=== PATIENT | female | born 1960 | race Caucasian/White ===

== ENCOUNTER → 2016-06-23 | Day surgery (SDC) | payer SELFPAY ==
[~2016-06-23] VITALS: Ht 157.5 cm; Wt 68.7 kg
[~2016-06-23] MED LIST: *HYDROmorphone PF 1 MG VIAL PERIprocedural Use ONLY ONE; *morphine SULFATE 8 MG/ML PERIprocedure ONLY ONE; ACETAMINOPHEN 1000 MG/100 ML VIAL IV ONE; BUPIVACAINE/EPINEPHRINE 0.25% 50 ML VIAL ONE; BUPIVACAINE/EPINEPHRINE 0.25% PF 30 ML VIAL ONE; BUPIVACAINE/EPINEPHRINE 0.5% 50 ML VIAL ONE; CHLORHEXIDINE GLUCONATE 2 % 1 PACK (2 CLOTHS) TOPICAL PRN; DO NOT ADM ANY ANTICOAGULANT DRUGS PRN; FAMOTIDINE 20 MG/2 ML VIAL ONE; INSULIN HUMAN REGULAR 1,000 UNITS/10 ML VIAL SQ PRN; LACTATED RINGER'S 1000 ML INJ 1,000 ML IV ONE; LACTATED RINGER'S 1000 ML IV PRN; METOPROLOL TARTRATE 25 MG TAB PO PRN; MIDAZOLAM HCL 2 MG/2 ML VIAL ONE; NEOSTIGMINE 3 MG/3 ML SYR IV ONE; NORC5TAB PO; ONDANSETRON HCL 4 MG/2 ML VIAL IV PUSH ONE; ONDANSETRON HCL 4 MG/2 ML VIAL ONE; POVIDONE IODINE 5% (ANTISEPSIS KIT) 4 APPLICATIONS EACH NARE PRN; PROPOFOL 200 MG/20 ML AMP IV ONE; SODIUM CHLORID 0.9% 500 ML IV PRN; SUGAMMADEX SODIUM 200 MG/2 ML VIAL IV PUSH ONE; ceFAZolin 1,000 MG/NS 100 ML IV SCH; fentaNYL CITRATE 250 MCG/5 ML AMP ONE
[2016-06-23 06:37] VITALS: BP 125/60; PULSE 84; RESP 18; TEMP 97.9; O2SAT 97
--- NOTE | 2016-06-23 07:31 | EKG ---
Date Performed: 06/23/2016 Time Performed: 06:42:51 PTAGE: 55 years EKG: Sinus rhythm NORMAL ECG NO PREVIOUS TRACING DOCTOR: Epifanio Bustos Interpretating Date/Time 06/23/2016 07:31:16
--- NOTE | 2016-06-23 10:31 | HHI.PR ---
cc: Hiren Ulrich MD Immediate Post Op Note Procedure Date: June 23, 2016 Pre Op Diagnosis: (1) Chronic appendicitis (2) Abdominal pain, right lower quadrant (3) Abdominal pain (4) Nausea (5) Abnormal CT scan Post Op Diagnosis: (1) Chronic appendicitis (2) Abdominal pain, right lower quadrant (3) Abdominal pain (4) Nausea (5) Abnormal CT scan (6) Status post laparoscopic appendectomy (7) Left ovarian cyst Surgeon: Hiren Ulrich Rn Imcu(s): Refer to or record Procedure: Diagnostic laparoscopy next laparoscopic appendectomy Findings: Chronic inflamed appendix Left ovarian cyst benign Complications: None Specimen(s) removed: Appendix Estimated blood loss: Minimal Anesthesia: General Drains: None IVF Patient to: PACU Patient Condition: Good Implant/Devices: SEE IMPLANT LOG (if applicable) Date/Time of Procedure: SEE SURGICAL CARE RECORD Hiren Ulrich MD June 23, 2016 10:31
[2016-06-23 12:28] VITALS: BP 138/65; PULSE 90; RESP 16; TEMP 98; O2SAT 98
--- NOTE | 2016-06-24 18:59 | MP ---
cc: MARY JANE ULRICH BEATRICE S. M.D. Corrected Copy: 07/03/16 DATE OF SURGERY 06/23/16 PREOPERATIVE DIAGNOSIS Chronic appendicitis. POSTOPERATIVE DIAGNOSIS 1. Chronic appendicitis. 2. Left ovarian cyst. PROCEDURE 1. Diagnostic laparoscopy 2. Lysis of adhesions 3. Laparoscopic appendectomy. ANESTHESIA General SURGEON Dr. Jian Ulrich. INDICATION This is a pleasant 55-year old female who has had a 3-month history of three episodes of right lower quadrant pain, chills, fevers. She had gone three times to the emergency room. She was seen on an outpatient basis, had a CT scan which showed unusual appearing appendix. She was sent to the office. Plans were made for above. PROCEDURE IN DETAIL The patient was taken to the operating room, placed in supine position after anesthesia. Her abdomen was prepped with Betadine. Time-out was done. She is given preoperative antibiotics. We make an incision just above her umbilicus. Veress needle was inserted, saline load test was performed. The abdomen is insufflated to 15 mmHg. Ten mm trocar was introduced. Two other working ports were placed and the 5 mm in the midline. Camera is introduced. The appendix is obviously inflamed. She had some adhesions along the anterior abdominal wall of the distal ileum and cecum. Once this is freed up with blunt dissection and hydrodissection. We are able to visualize the appendix which is obviously chronically inflamed. The mesentery is taken down with the harmonic scalpel down to the base of the appendix. Two endo-ties were then placed around the base of the appendix. The appendix then amputated, placed in EndoCatch and passed off the field. The terminal ileum looks normal except for the inflammatory response from the appendix on an epiploica. The pelvis was inspected. The right ovary appears normal. Left ovary has a small cyst. Uterus looks normal. Liver is smooth. The peritoneal surfaces smooth. The gallbladder looks completely normal. The omentum is then draped over the appendiceal stump after copious irrigation was done and performed. This irrigant was removed. The CO2 is removed. The fascial layer at the umbilicus closed with a 0 Vicryl and skin at all three sites closed with 4-0 Vicryl. Steri-Strips applied. Sterile bandage applied. The patient tolerated procedure well, had no immediate postop complications. MD TOBY Ritchie/ /10:26 AM /6:50 PM [facility]
== END | disposition home or self-care (01) ==
LOC: HSDC 05:27
PROVIDERS: ATTEND Surgery
DX: K36 Other appendicitis (principal); N83.202 Unspecified ovarian cyst, left side; R11.0 Nausea; R10.31 Right lower quadrant pain; Z01.810 Encounter for preprocedural cardiovascular examination
CPT/HCPCS: 00840; 44970; 88304; 93005; J0131; J0690; J1170; J2250; J2270; J2405; J2710; J3010; J7120

== ENCOUNTER 2017-01-03 19:00 | Emergency (ER) | payer SELFPAY ==
[~2017-01-03] VITALS: Ht 157.5 cm; Wt 68.0 kg
[~2017-01-03 19:00] MED LIST changes: -*HYDROmorphone PF 1 MG VIAL PERIprocedural Use ONLY ONE; -*morphine SULFATE 8 MG/ML PERIprocedure ONLY ONE; -ACETAMINOPHEN 1000 MG/100 ML VIAL IV ONE; -BUPIVACAINE/EPINEPHRINE 0.25% 50 ML VIAL ONE; -BUPIVACAINE/EPINEPHRINE 0.25% PF 30 ML VIAL ONE; -BUPIVACAINE/EPINEPHRINE 0.5% 50 ML VIAL ONE; -CHLORHEXIDINE GLUCONATE 2 % 1 PACK (2 CLOTHS) TOPICAL PRN; -DO NOT ADM ANY ANTICOAGULANT DRUGS PRN; -FAMOTIDINE 20 MG/2 ML VIAL ONE; -INSULIN HUMAN REGULAR 1,000 UNITS/10 ML VIAL SQ PRN; -LACTATED RINGER'S 1000 ML INJ 1,000 ML IV ONE; -LACTATED RINGER'S 1000 ML IV PRN; -METOPROLOL TARTRATE 25 MG TAB PO PRN; -MIDAZOLAM HCL 2 MG/2 ML VIAL ONE; -NEOSTIGMINE 3 MG/3 ML SYR IV ONE; -ONDANSETRON HCL 4 MG/2 ML VIAL IV PUSH ONE; -ONDANSETRON HCL 4 MG/2 ML VIAL ONE; -POVIDONE IODINE 5% (ANTISEPSIS KIT) 4 APPLICATIONS EACH NARE PRN; -PROPOFOL 200 MG/20 ML AMP IV ONE; -SODIUM CHLORID 0.9% 500 ML IV PRN; -SUGAMMADEX SODIUM 200 MG/2 ML VIAL IV PUSH ONE; -ceFAZolin 1,000 MG/NS 100 ML IV SCH; -fentaNYL CITRATE 250 MCG/5 ML AMP ONE
[2017-01-03 19:01] VITALS: BP 126/60; PULSE 139; RESP 22; TEMP 103.2; O2SAT 98
[2017-01-03] MEDS ORDERED: SODIUM CHLOR 0.9% 1000 ML INJ 1,000 ML IV ONE ×2 (19:22)
[2017-01-03] MEDS ORDERED: SODIUM CHLOR 0.9% 1000 ML INJ 100 ML IV ONE (19:22)
--- NOTE | 2017-01-03 19:28 | PD ---
HPI Chief Complaint: Fever Time Seen by Provider: 19:13 Travel History International Travel<30 days: No Contact w/Intl Traveler<30days: No Traveled to known affect area: No History of Present Illness HPI 56 YO F presents to the ED for evaluation of 3 day history of fever. The patient has been treating at home with Tylenol, last dose ~645pm tonight. She endorses recent history of lower abdominal pain. Described as intermittent, resolved on presentation. She denies headaches, dizziness, sinus congestion, neck pain, cough, CP, SOB, nausea, vomiting, dysuria, back pain, weakness of the extremities. She endorses similar history of fever in the past but states there was never any source identified. She denies risk of . Patient is somewhat guarded in providing her history. She is followed by Dr. Lutz. [facility] Past Medical History Cancer: No Cardiovascular Problems: No Diabetes: No Endocrine: No Genitourinary: No Hepatitis: No Immune Disorder: No Musculoskeletal: Yes (LT SHOULDER TENDONITIS AND BURSITIS, LT KNEE PAIN) Neurologic: Yes (HX MIGRAINES, LOW BACK PAIN) Respiratory: No Thyroid Disease: No Past Surgical History AICD: No Joint Replacement: No Oral Surgery: Yes (TONSILLECTOMY) Pacemaker: No Social History Tobacco Use: No Substance Use: No Allergies-Medications (Allergen,Severity, Reaction): Coded Allergies: shellfish derived (Unverified Allergy, Severe, TINGLING AND ITCHING IN MOUTH AND THROAT, 01/04/17) Reported Meds & Prescriptions Reported Meds & Active Scripts Active Macrobid (Nitrofurantoin Monoh/Nitrofur Macro) 100 Mg Cap 100 Mg PO BID 7 Days [place] (Hydrocodone-Acetaminophen) 5-325 mg Tab 1 Tab PO Q6H PRN Review of Systems Except as stated in HPI: all other systems reviewed are Neg Physical Exam Narrative GENERAL: Well-nourished, well-developed female in no acute distress. SKIN: Focused skin assessment warm/dry. HEAD: Normocephalic. EYES: No scleral icterus. No injection or drainage. NECK: Supple, trachea midline. No JVD or lymphadenopathy. No nuchal rigidity. No limitation to ROM of the neck. CARDIOVASCULAR: Regular rate and rhythm without murmurs, gallops, or rubs. RESPIRATORY: Breath sounds clear and equal bilaterally. No accessory muscle use. GASTROINTESTINAL: Abdomen soft, non-tender, nondistended. MUSCULOSKELETAL: No cyanosis, or edema. BACK: Nontender without obvious deformity. No CVA tenderness. Data Data Last Documented VS Orders Orders Sepsis Workup Initiated (01/03/17 ) Complete Blood Count With Diff (01/03/17 19:22) Comprehensive Metabolic Panel (01/03/17 19:22) Prothrombin Time / Inr (Pt) (01/03/17:) Act Partial Throm Time (Ptt) (01/03/17 19:) Lactic Acid Sepsis Protocol (01/03/17 19:22) Lipase (01/03/17:22) Urinalysis - C+S If Indicated (01/03/17:) Influenzae A/B Antigen (01/03/17:) Blood Culture (01/03/17 19:22) Chest, Single Ap (01/03/17 19:22) Blood Glucose (01/03/17:) Ecg Monitoring (01/03/17:) Iv Access Insert/Monitor (01/03/17 19:22) Oximetry (01/03/17:22) Sodium Chlor 0.9% 1000 Ml Inj (Ns 1000 M (01/03/17 19:22) Sodium Chlor 0.9% 1000 Ml Inj (Ns 1000 M (01/03/17 19:22) Sodium Chlor 0.9% 1000 Ml Inj (Ns 1000 M (01/03/17 19:22) Urine Culture (01/03/17 21:49) Ceftriaxone Inj (Rocephin Inj) (01/03/17 23:00) Ed Discharge Order (01/03/17 23:02) Labs Laboratory Tests Test 01/03/17 20:03 01/03/17 20:41 01/03/17 21:49 White Blood Count 9.9 TH/MM3 Red Blood Count 4.31 MIL/MM3 Hemoglobin 13.8 GM/DL Hematocrit 39.1 % Mean Corpuscular Volume 90.9 FL Mean Corpuscular Hemoglobin 32.0 PG Mean Corpuscular Hemoglobin Concent 35.2 % Red Cell Distribution Width 13.3 % Platelet Count 217 TH/MM3 Mean Platelet Volume 7.9 FL Neutrophils (%) (Auto) 87.1 % Lymphocytes (%) (Auto) 10.1 % Monocytes (%) (Auto) 2.2 % Eosinophils (%) (Auto) 0.0 % Basophils (%) (Auto) 0.6 % Neutrophils # (Auto) 8.6 TH/MM3 Lymphocytes # (Auto) 1.0 TH/MM3 Monocytes # (Auto) 0.2 TH/MM3 Eosinophils # (Auto) 0.0 TH/MM3 Basophils # (Auto) 0.1 TH/MM3 CBC Comment DIFF FINAL Differential Comment Prothrombin Time 10.7 SEC Prothromb Time International Ratio 1.0 RATIO Activated Partial Thromboplast Time 28.4 SEC Blood Urea Nitrogen 11 MG/DL Creatinine 1.02 MG/DL Random Glucose 147 MG/DL Total Protein 7.4 GM/DL Albumin 3.4 GM/DL Calcium Level 8.7 MG/DL Alkaline Phosphatase 81 U/L Aspartate Amino Transf (AST/SGOT) 32 U/L Alanine Aminotransferase (ALT/SGPT) 43 U/L Total Bilirubin 1.4 MG/DL Sodium Level 136 MEQ/L Potassium Level 3.8 MEQ/L Chloride Level 103 MEQ/L Carbon Dioxide Level 23.9 MEQ/L Anion Gap 9 MEQ/L Estimat Glomerular Filtration Rate 56 ML/MIN Lipase 133 U/L Lactic Acid Level 1.8 mmol/L Urine Color YELLOW Urine Turbidity HAZY Urine pH 7.0 Urine Specific [place] 1.010 Urine Protein TRACE mg/dL Urine Glucose (UA) NEG mg/dL Urine Ketones 40 mg/dL Urine Occult Blood MOD Urine Nitrite NEG Urine Bilirubin NEG Urine Urobilinogen LESS THAN 2.0 MG/DL Urine Leukocyte Esterase LARGE Urine RBC 20 /hpf Urine WBC 28 /hpf Urine Squamous Epithelial Cells 2 /hpf Urine Transitional Epithelial Cells 1 /hpf Urine Amorphous Sediment RARE Urine Bacteria RARE /hpf Urine Mucus FEW /lpf Microscopic Urinalysis Comment CATH-CULTURE IND MDM Medical Decision Making Medical Screen Exam Complete: Yes Emergency Medical Condition: Yes Differential Diagnosis UTI versus PNA versus influenza versus other Narrative Course 56 YO F presents to the ED for evaluation of 3 day history of fever. The patient has been treating at home with Tylenol, last dose ~645pm tonight. She endorses recent history of lower abdominal pain. Described as intermittent, resolved on presentation. She denies headaches, dizziness, sinus congestion, neck pain, cough, CP, SOB, nausea, vomiting, dysuria, back pain, weakness of the extremities. She denies risk of . Patient is somewhat guarded in providing her history. She is followed by Dr. Lutz. Temperature 103.2, heart rate 139 on presentation. Patient states that she treated at home with 2 Tylenol just before arrival. Physical exam reveals a nontoxic-appearing female in no acute distress. Lungs clear to auscultation bilaterally. Abdomen soft and nontender. No CVA tenderness noted. Blood cultures were obtained. IV fluid resuscitation was initiated under the sepsis protocol. CBC: WBC 9.9. Hemoglobin 13.8. INR: 1.0. CMP: BUN 11, creatinine 1.02. Bilirubin 1.4. Lipase 133. Lactic acid 1.8. Influenza swab negative. UA: Hazy, moderate occult blood, large leukocyte esterase, 28 WBCs, 20 RBCs. Rare bacteria. Culture pending. Patient was administered 1 g Rocephin IV. I discussed the results of the workup with the patient and her . Patient does not want to be admitted at this time. Temp 99.7, heart rate 68 on recheck. She is prescribed Macrobid 100 mg twice a day 7 days. She is instructed to return to the ED should symptoms worsen, otherwise follow up with her primary care provider. Patient is stable and discharged home. Diagnosis Primary Impression: Acute hemorrhagic cystitis Referrals: Primary Care Physician Patient Instructions: General Instructions, Urinary Tract Infection in Women ( ED) Additional Instructions: Rest, hydrate. Take antibiotics as prescribed. Follow-up with the primary care provider this week. Return to the ED for worsening symptoms or any urgent or emergent medical condition. Med/Other Pt SpecificInfo: Prescription(s) given Scripts Nitrofurantoin Monohydrate Macrocrystals (Macrobid) 100 Mg Cap 100 MG PO BID for Infection for 7 Days, #14 CAP 0 Refills Prov: Sabrina Sawyer MD 01/03/17 Disposition: DISCHARGE HOME Condition: Stable Lubna Murphy Jan 03, 2017 19:28
--- NOTE | 2017-01-03 19:53 | RADRPT ---
EXAM DATE/TIME: 01/03/2017 19:29 [place] COMPARISON: No previous studies available for comparison. INDICATIONS : Fever. MEDICAL HISTORY : None. SURGICAL HISTORY : None. ENCOUNTER: Initial ACUITY: 3 days PAIN SCORE: 0/10 LOCATION: chest FINDINGS: A single view of the chest demonstrates the lungs to be symmetrically aerated without evidence of mas s, infiltrate or effusion. The cardiomediastinal contours are unremarkable. Osseous structures are intact. CONCLUSION: The lungs are clear. Cipriano Turner MD on January 03, 2017 at 19:52 Board Certified Radiologist. This report was verified electronically.
[2017-01-03 20:26] LABS: AUTOMATED NEUTROPHIL # 8.6 TH/MM3 (1.8-7.7); BASOPHIL # 0.1 TH/MM3 (0-0.2); BASOPHIL % 0.6 % (0.0-2.0); HEMATOCRIT 39.1 % (35.0-46.0); HEMO FLAGS DIFF FINAL; LYMPH % 10.1 % (9.0-44.0); MEAN CELL VOLUME 90.9 FL (80.0-100.0); MEAN CORPUSCULAR HGB CONC 35.2 % (32.0-36.0); MONO % 2.2 % (0.0-8.0); NEUT % 87.1 % (16.0-70.0); PLATELET COUNT 217 TH/MM3 (150-450); RED BLOOD COUNT 4.31 MIL/MM3 (4.00-5.30); RED CELL DISTRIBUTION WIDTH 13.3 % (11.6-17.2); WHITE BLOOD COUNT 9.9 TH/MM3 (4.0-11.0)
[2017-01-03 20:28] LABS: APTT (PATIENT) 28.4 SEC (24.3-30.1); PROTHROMBIN TIME - PATIENT 10.7 SEC (9.8-11.6)
[2017-01-03 20:32] LABS: ANION GAP 9 MEQ/L (5-15); AST (GOT) 32 U/L (15-37); BICARBONATE 23.9 MEQ/L (21.0-32.0); BLOOD UREA NITROGEN 11 MG/DL (7-18); CHLORIDE 103 MEQ/L (98-107); GLOMERULAR FILTRATION RATE 56 ML/MIN (>89); POTASSIUM 3.8 MEQ/L (3.5-5.1); SODIUM (NA) 136 MEQ/L (136-145)
[2017-01-03 20:33] LABS: ALT (GPT) 43 U/L (10-53)
[2017-01-03 20:35] LABS: ALKALINE PHOSPHATASE 81 U/L (45-117); TOTAL BILIRUBIN ADULT 1.4 MG/DL (0.2-1.0)
[2017-01-03 21:23] VITALS: BP 101/52; PULSE 108; RESP 18; TEMP 99.7; O2SAT 98
[2017-01-03 22:03] LABS: BACTERIA, URINE RARE /hpf; BLOOD, URINE MOD (NEG); COMMENT (UR) CATH-CULTURE IND; CULTURE IF INDICATED CATH CULTURE IND; GLUCOSE,URINE NEG (NEG); KETONE, URINE 40 mg/dL (NEG); MUCUS URINE FEW /lpf (OCC); NITRITE,URINE NEG (NEG); SQUAMOUS EPITHELIAL CELL URINE 2 /hpf (0-5); TRANSITIONAL EPI CELLS, URINE 1 /hpf; URINE COLOR YELLOW (YELLW/STRAW)
[2017-01-03] MEDS ORDERED: MACR100C2 PO (22:50)
[2017-01-03] MEDS ORDERED: cefTRIAXone INJ 1,000 MG in SODIUM CHLORIDE 0.9% INJ 100 ML IV ONE (23:00)
[2017-01-03 23:15] VITALS: BP 110/60; PULSE 68; RESP 16; O2SAT 100
[2017-01-03 23:59] VITALS: BP 110/60
== END 2017-01-04 00:02 | disposition home or self-care (01) ==
LOC: NEPC 19:00
DX: N30.01 Acute cystitis with hematuria (principal); R78.81 Bacteremia; B96.1 Klebsiella pneumoniae [K. pneumoniae] as the cause of diseases classified elsewhere
CPT/HCPCS: 71010; 80053; 81001; 83605; 83690; 85025; 85610; 85730; 87040; 87077; 87086; 87149; 87186; 87205; 87804; 96361; 96365; 99284; J0696; J7030

== ENCOUNTER 2017-01-04 21:55 | Inpatient (IN) | payer SELFPAY ==
[~2017-01-04] VITALS: Ht 157.5 cm; Wt 68.0 kg
[~2017-01-04 21:55] MED LIST changes: +MACR100C2 PO
[2017-01-04 21:57] VITALS: BP 145/65; PULSE 131; RESP 16; TEMP 105.1; O2SAT 97
[2017-01-04] MEDS ORDERED: SODIUM CHLOR 0.9% 1000 ML INJ 1,000 ML IV ONE ×2 (22:27)
[2017-01-04] MEDS ORDERED: SODIUM CHLOR 0.9% 1000 ML INJ 100 ML IV ONE (22:27)
[2017-01-04] MEDS ORDERED: IBUPROFEN 800 MG TAB PO ONE (22:30)
[2017-01-04] MEDS ORDERED: PIPERACIL-TAZO 4.5 GM PREMIX 100 ML IV STA (22:38)
[2017-01-04] MEDS ORDERED: VANCOMYCIN INJ 1,000 MG in SODIUM CHLOR 0.9% 250 ML INJ 250 ML IV STA (22:38)
[2017-01-04 22:45] VITALS: BP 118/56; PULSE 126; RESP 22; TEMP 103; O2SAT 99
--- NOTE | 2017-01-04 22:51 | PD ---
HPI Chief Complaint: Fever Time Seen by Provider: 22:35 Travel History International Travel<30 days: No Contact w/Intl Traveler<30days: No Traveled to known affect area: No History of Present Illness HPI Patient is a 56-year-old female presenting to the emergency department for evaluation of urinary symptoms, fever, body aches. Patient states this started on Sunday, she presented to the emergency department last night and was diagnosed with a urinary tract infection. She states they were unable to get the antibiotics filled due to it being a holiday. She reports fevers, chills, shaking all day, she is been taking Tylenol which relieves the temperature but it returns quickly. She reports a decreased appetite, she has been tolerating oral fluids and has had at least 6 bottles of water today. She reports a dull headache as well. PFSH Past Medical History Cancer: No Cardiovascular Problems: No Diabetes: No Endocrine: No Genitourinary: No Hepatitis: No Immune Disorder: No Musculoskeletal: Yes (LT SHOULDER TENDONITIS AND BURSITIS, LT KNEE PAIN) Neurologic: Yes (HX MIGRAINES, LOW BACK PAIN) Respiratory: No Thyroid Disease: No Past Surgical History AICD: No Joint Replacement: No Oral Surgery: Yes (TONSILLECTOMY) Pacemaker: No Social History Tobacco Use: No Substance Use: No Allergies-Medications (Allergen,Severity, Reaction): Coded Allergies: shellfish derived (Unverified Allergy, Severe, TINGLING AND ITCHING IN MOUTH AND THROAT, 01/04/17) Reported Meds & Prescriptions Reported Meds & Active Scripts Active Macrobid (Nitrofurantoin Monoh/Nitrofur Macro) 100 Mg Cap 100 Mg PO BID 7 Days [place] (Hydrocodone-Acetaminophen) 5-325 mg Tab 1 Tab PO Q6H PRN Review of Systems Except as stated in HPI: all other systems reviewed are Neg General / Constitutional: Positive: Fever, Chills HENT: Positive: Headaches, Neck Stiffness Cardiovascular: No: Chest Pain or Discomfort Respiratory: No: Shortness of Breath Gastrointestinal: No: Nausea, Vomiting Genitourinary: Positive: Dysuria, Pelvic Pain Musculoskeletal: Positive: Myalgias Neurologic: Positive: Weakness, No: Focal Abnormalities, Change in Mentation, Slurred Speech, Sensory Disturbance Physical Exam Narrative GENERAL: Well-developed, well-nourished, alert female. Appears uncomfortable, in no acute distress. SKIN: Warm and dry. HEAD: Atraumatic. Normocephalic. EYES: Pupils equal and round. No scleral icterus. No injection or drainage. ENT: No nasal bleeding or discharge. Mucous membranes pink and moist. NECK: Trachea midline. No JVD. CARDIOVASCULAR: Tachycardic RESPIRATORY: No accessory muscle use. Clear to auscultation. Breath sounds equal bilaterally. GASTROINTESTINAL: Abdomen soft, only tender to palpation in suprapubic region, nondistended. Hepatic and splenic margins not palpable. Positive bowel sounds, no rebound, no guarding. MUSCULOSKELETAL: Extremities without clubbing, cyanosis, or edema. No obvious deformities. NEUROLOGICAL: Awake and alert. No obvious cranial nerve deficits. Motor grossly within normal limits. Five out of 5 muscle strength in the arms and legs. Normal speech. PSYCHIATRIC: Appropriate mood and affect; insight and judgment normal. Data Data Last Documented VS Vital Signs Date Time Temp Pulse Resp B/P (MAP) Pulse Ox O2 Delivery O2 Flow Rate FiO2 01/04/17 22:57 22 99 Nasal Cannula 2.00 01/04/17 22:45 103.0 126 Orders Orders Sepsis Workup Initiated (01/04/17 ) Electrocardiogram (01/04/17 22:27) Complete Blood Count With Diff (01/04/17 22:27) Comprehensive Metabolic Panel (01/04/17 22:27) Lactic Acid Sepsis Protocol (01/04/17 22:27) Magnesium (Mg) (01/04/17 22:27) Urinalysis - C+S If Indicated (01/04/17 22:27) Blood Culture (01/04/17 22:27) Blood Glucose (01/04/17 22:27) Ecg Monitoring (01/04/17 22:27) Iv Access Insert/Monitor (01/04/17 22:27) Oximetry (01/04/17 22:27) Oxygen Administration (01/04/17 22:27) Ibuprofen (Motrin) (01/04/17 22:30) Sodium Chlor 0.9% 1000 Ml Inj (Ns 1000 M (01/04/17 22:27) Sodium Chlor 0.9% 1000 Ml Inj (Ns 1000 M (01/04/17 22:27) Sodium Chlor 0.9% 1000 Ml Inj (Ns 1000 M (01/04/17 22:27) Piperacil-Tazo 4.5 Gm Premix (Zosyn 4.5 (01/04/17 22:38) Vancomycin Inj (Vancomycin Inj) (01/04/17 22:38) Urine Culture (01/04/17 22:50) Influenzae A/B Antigen (01/04/17 23:47) Admit Order (Ed Use Only) (01/05/17 ) Brass Pourer / Telemetry NELA.Q8H (01/05/17 01:05) Diet Heart Healthy (01/05/17 Breakfast) Activity Oob With Assistance (01/05/17 01:05) Notify Dr: Other (01/05/17 01:05) Labs Laboratory Tests Test 01/04/17 22:50 01/04/17 22:52 Urine Color LIGHT-YELLOW Urine Turbidity CLEAR Urine pH 5.5 Urine Specific [place] 1.007 Urine Protein 30 mg/dL Urine Glucose (UA) NEG mg/dL Urine Ketones 10 mg/dL Urine Occult Blood MOD Urine Nitrite NEG Urine Bilirubin NEG Urine Urobilinogen LESS THAN 2.0 MG/DL Urine Leukocyte Esterase NEG Urine RBC 8 /hpf Urine WBC 4 /hpf Urine Squamous Epithelial Cells <1 /hpf Urine Transitional Epithelial Cells <1 /hpf Urine Amorphous Sediment OCC Urine Bacteria RARE /hpf Urine Mucus FEW /lpf Microscopic Urinalysis Comment CATH-CULTURE IND White Blood Count 8.9 TH/MM3 Red Blood Count 3.69 MIL/MM3 Hemoglobin 11.3 GM/DL Hematocrit 33.2 % Mean Corpuscular Volume 89.9 FL Mean Corpuscular Hemoglobin 30.7 PG Mean Corpuscular Hemoglobin Concent 34.2 % Red Cell Distribution Width 13.5 % Platelet Count 158 TH/MM3 Mean Platelet Volume 7.9 FL Neutrophils (%) (Auto) 90.9 % Lymphocytes (%) (Auto) 3.5 % Monocytes (%) (Auto) 3.3 % Eosinophils (%) (Auto) 0.2 % Basophils (%) (Auto) 2.1 % Neutrophils # (Auto) 8.1 TH/MM3 Lymphocytes # (Auto) 0.3 TH/MM3 Monocytes # (Auto) 0.3 TH/MM3 Eosinophils # (Auto) 0.0 TH/MM3 Basophils # (Auto) 0.2 TH/MM3 CBC Comment AUTO DIFF Differential Total Cells Counted 100 Neutrophils % (Manual) 85 % Band Neutrophils % 10 % Lymphocytes % 3 % Monocytes % 2 % Neutrophils # (Manual) 8.5 TH/MM3 Differential Comment FINAL DIFF MANUAL Atypical Lymphocytes % Toxic Vacuolation PRESENT Platelet Estimate NORMAL Platelet Morphology Comment NORMAL Red Cell Morphology Comment NORMAL Blood Urea Nitrogen 10 MG/DL Creatinine 0.89 MG/DL Random Glucose 127 MG/DL Total Protein 6.3 GM/DL Albumin 2.7 GM/DL Calcium Level 8.1 MG/DL Magnesium Level 1.2 MG/DL Alkaline Phosphatase 95 U/L Aspartate Amino Transf (AST/SGOT) 31 U/L Alanine Aminotransferase (ALT/SGPT) 54 U/L Total Bilirubin 1.1 MG/DL Sodium Level 137 MEQ/L Potassium Level 3.4 MEQ/L Chloride Level 108 MEQ/L Carbon Dioxide Level 20.8 MEQ/L Anion Gap 8 MEQ/L Estimat Glomerular Filtration Rate 66 ML/MIN Lactic Acid Level 1.7 mmol/L [facility] Medical Decision Making Medical Screen Exam Complete: Yes Emergency Medical Condition: Yes Medical Record Reviewed: Yes Interpretation(s) Vital Signs Date Time Temp Pulse Resp B/P (MAP) Pulse Ox O2 Delivery O2 Flow Rate FiO2 01/04/17 21:57 105.1 131 16 145/65 (91) 97 Room Air Differential Diagnosis Urosepsis versus metabolic abnormality versus cardiac arrhythmia versus other Narrative Course Patient is a 56-year-old female presented to emergency department for evaluation of fever, urinary symptoms. Patient is tachycardic and hyperthermic on arrival. Sepsis workup initiated. Upon review of medical records, patient' s blood cultures that were drawn yesterday have preliminary results of gram negative rods. Empiric antibiotics ordered, Zosyn and vancomycin. Ibuprofen ordered for fever. Care of patient will be transferred to Dr. Sawyer at the end of my shift, she will determine patient's disposition. Sepsis Criteria SIRS Criteria (2 or more): Temp > 100.9 or < 96.8, Heart rate over 90 Sepsis Criteria (SIRS+source): Infect source susp/known Kailee Mason Jan 04, 2017 22:51
[2017-01-04 22:57] VITALS: RESP 22; O2SAT 99
[2017-01-04 23:05] LABS: AUTOMATED NEUTROPHIL # 8.1 TH/MM3 (1.8-7.7); BASOPHIL # 0.2 TH/MM3 (0-0.2); BASOPHIL % 2.1 % (0.0-2.0); EOSINOPHIL % 0.2 % (0.0-4.0); HEMATOCRIT 33.2 % (35.0-46.0); LYMPH % 3.5 % (9.0-44.0); LYMPHOCYTE # 0.3 TH/MM3 (1.0-4.8); MEAN CELL VOLUME 89.9 FL (80.0-100.0); MEAN CORPUSCULAR HEMOGLOBIN 30.7 PG (27.0-34.0); MEAN CORPUSCULAR HGB CONC 34.2 % (32.0-36.0); MONO % 3.3 % (0.0-8.0); NEUT % 90.9 % (16.0-70.0); PLATELET COUNT 158 TH/MM3 (150-450); RED BLOOD COUNT 3.69 MIL/MM3 (4.00-5.30); RED CELL DISTRIBUTION WIDTH 13.5 % (11.6-17.2); WHITE BLOOD COUNT 8.9 TH/MM3 (4.0-11.0)
[2017-01-04 23:06] LABS: HEMO FLAGS AUTO DIFF
[2017-01-04 23:16] LABS: BACTERIA, URINE RARE /hpf; BLOOD, URINE MOD (NEG); GLUCOSE,URINE NEG (NEG); KETONE, URINE 10 mg/dL (NEG); MUCUS URINE FEW /lpf (OCC); NITRITE,URINE NEG (NEG); PH, URINE 5.5 (5.0-8.5); SQUAMOUS EPITHELIAL CELL URINE <1 /hpf (0-5); TRANSITIONAL EPI CELLS, URINE <1 /hpf; URINE COLOR LIGHT-YELLOW (YELLW/STRAW)
[2017-01-04 23:17] LABS: COMMENT (UR) CATH-CULTURE IND; CULTURE IF INDICATED CATH CULTURE IND
[2017-01-04 23:32] LABS: BANDS 10 % (0-6); NEUTROPHIL # MANUAL DIFF 8.5 TH/MM3 (1.8-7.7); PLATELET ESTIMATE SMEAR NORMAL (NORMAL); POLYS (SEG NEUTROPHILS) 85 % (16-70); SCAN/DIFF FINAL DIFF MANUAL; WBC DIFF SAMPLE 100
[2017-01-04 23:33] LABS: PLATELET MORPHOLOGY NORMAL (NORMAL)
[2017-01-04 23:35] LABS: TOXIC VACUOLATION PRESENT (NONE SEEN)
[2017-01-04 23:40] LABS: ALKALINE PHOSPHATASE 95 U/L (45-117); ALT (GPT) 54 U/L (10-53); ANION GAP 8 MEQ/L (5-15); AST (GOT) 31 U/L (15-37); BICARBONATE 20.8 MEQ/L (21.0-32.0); BLOOD UREA NITROGEN 10 MG/DL (7-18); CHLORIDE 108 MEQ/L (98-107); GLOMERULAR FILTRATION RATE 66 ML/MIN (>89); MAGNESIUM 1.2 MG/DL (1.5-2.5); POTASSIUM 3.4 MEQ/L (3.5-5.1); SODIUM (NA) 137 MEQ/L (136-145); TOTAL BILIRUBIN ADULT 1.1 MG/DL (0.2-1.0)
[2017-01-05] VITALS (7 sets, daily range): BP systolic 96–131; BP diastolic 53–61; PULSE 83–107; RESP 16–20; TEMP 97.2–103.2; O2SAT 96–100
[2017-01-05] MEDS ORDERED: NALOXONE HCL 0.4 MG/ML AMP IV PUSH PRN ×2 (01:15→15:00)
[2017-01-05] MEDS ORDERED: ONDANSETRON HCL 4 MG/2 ML VIAL IVP PRN ×3 (01:15→19:00)
[2017-01-05] MEDS ORDERED: BISACODYL 10 MG SUPP RECTAL PRN ×2 (01:15→14:30)
[2017-01-05] MEDS ORDERED: MAGNESIUM HYDROXIDE SUSP 30 ML CUP PO PRN ×2 (01:15→14:30)
[2017-01-05] MEDS ORDERED: Vancomycin Consult Pharmacy 1 EA OTHER SCH (01:15)
[2017-01-05] MEDS ORDERED: LACTULOSE SYRUP 20 GM/30 ML CUP PO PRN ×2 (01:15→14:30)
[2017-01-05] MEDS ORDERED: POTASSIUM CHLORIDE 20 MEQ CONTROLLED RELEASE TAB PO ONE (01:15)
[2017-01-05] MEDS ORDERED: SODIUM CHLORIDE 0.9% FLUSH 10 ML FLUSH IV FLUSH PRN ×2 (01:15→15:00)
[2017-01-05] MEDS ORDERED: SENNOSIDES 8.6 MG TAB PO PRN ×2 (01:15→15:00)
[2017-01-05] MEDS: SODIUM CHLOR 0.9% 1000 ML INJ 1,000 ML IV SCH ×3 (01:24→17:43)
--- NOTE | 2017-01-05 02:51 | HHI.HP ---
HPI Service [facility] Primary Care Physician Spike Lutz MD Admission Diagnosis sepsis; uti Diagnoses: Travel History International Travel<30 Days: No Contact w/Intl Traveler <30 Da: No Traveled to Known Affected Are: No History of Present Illness 56-year-old female with a past medical history significant for asthma presents with fever/chills and body aches. The patient states her fevers have been getting steadily worse since Sunday. She was seen in the emergency department on 01/03/17 and diagnosed with a UTI. She was given a prescription for Macrobid however she was unable to fill the prescription. She reports instead she took an old antibiotic that she had at home, Cipro 1 dose. She denies any symptoms of dysuria. On arrival to the emergency department her temperature was 105.1. She was tachycardic to 131. 4/4 blood cultures drawn on 01/03/17 were positive for gram-negative rods. Urine showed rare bacteria, negative leukocyte esterase and negative nitrites. Urine from 01/03 had large leukocyte esterase with 28 WBCs. Patient also recently had a dental implant placed. Review of Systems Positive fever/chills Denies blurry vision, otorrhea, rhinorrhea Denies sore throat and cough No chest pain, palpitations, shortness of breath No abdominal pain Denies constipation/diarrhea/nausea/vomiting Denies muscle pain/weakness No rashes Past Family Social History Past Medical History Asthma Past Surgical History Tonsillectomy Appendectomy Left knee meniscal repair Reported Medications Reported Meds & Active Scripts Active Macrobid (Nitrofurantoin Monoh/Nitrofur Macro) 100 Mg Cap 100 Mg PO BID 7 Days [place] (Hydrocodone-Acetaminophen) 5-325 mg Tab 1 Tab PO Q6H PRN Allergies: Coded Allergies: shellfish derived (Unverified Allergy, Severe, TINGLING AND ITCHING IN MOUTH AND THROAT, 01/04/17) Family History Father with cardiac disease. Social History Denies smoking. Occasional alcohol. Denies marijuana or illicit drugs. Physical Exam Vital Signs Vital Signs Date Time Temp Pulse Resp B/P (MAP) Pulse Ox O2 Delivery O2 Flow Rate FiO2 01/05/17 01:54 99.5 101 19 114/59 (77) 100 Room Air 01/04/17 22:57 22 99 Nasal Cannula 2.00 01/04/17 22:57 99 Nasal Cannula 2.00 01/04/17 22:45 103.0 126 22 118/56 (76) 99 Nasal Cannula 2.00 01/04/17 21:57 105.1 131 16 145/65 (91) 97 Room Air Physical Exam GENERAL: female lying in bed SKIN: No rashes, ecchymoses or lesions. Cool and dry. HEAD: Atraumatic. Normocephalic. No temporal or scalp tenderness. EYES: Pupils equal round and reactive. Extraocular motions intact. No scleral icterus. No injection or drainage. ENT: Nose without bleeding, purulent drainage or septal hematoma. Throat without erythema, tonsillar hypertrophy or exudate. Uvula midline. Airway patent. NECK: Trachea midline. No JVD or lymphadenopathy. Supple, nontender, no meningeal signs. CARDIOVASCULAR: Regular rate and rhythm without murmurs, gallops, or rubs. RESPIRATORY: Clear to auscultation. Breath sounds equal bilaterally. No wheezes , rales, or rhonchi. GASTROINTESTINAL: Abdomen soft, nondistended. Tender to palpation in the suprapubic region. No hepato-splenomegaly, or palpable masses. No guarding. MUSCULOSKELETAL: Extremities without clubbing, cyanosis, or edema. No joint tenderness, effusion, or edema noted. No calf tenderness. Negative Homans sign bilaterally. NEUROLOGICAL: Awake and alert. Cranial nerves II through XII intact. Motor and sensory grossly within normal limits. Normal speech. Laboratory Laboratory Tests Test 01/04/17 22:50 01/04/17 22:52 Urine Color LIGHT-YELLOW Urine Turbidity CLEAR Urine pH 5.5 Urine Specific [place] 1.007 Urine Protein 30 Urine Glucose (UA) NEG Urine Ketones 10 Urine Occult Blood MOD Urine Nitrite NEG Urine Bilirubin NEG Urine Urobilinogen LESS THAN 2.0 Urine Leukocyte Esterase NEG Urine RBC 8 Urine WBC 4 Urine Squamous Epithelial Cells <1 Urine Transitional Epithelial Cells <1 Urine Amorphous Sediment OCC Urine Bacteria RARE Urine Mucus FEW Microscopic Urinalysis Comment CATH-CULTURE IND White Blood Count 8.9 Red Blood Count 3.69 Hemoglobin 11.3 Hematocrit 33.2 Mean Corpuscular Volume 89.9 Mean Corpuscular Hemoglobin 30.7 Mean Corpuscular Hemoglobin Concent 34.2 Red Cell Distribution Width 13.5 Platelet Count 158 Mean Platelet Volume 7.9 Neutrophils (%) (Auto) 90.9 Lymphocytes (%) (Auto) 3.5 Monocytes (%) (Auto) 3.3 Eosinophils (%) (Auto) 0.2 Basophils (%) (Auto) 2.1 Neutrophils # (Auto) 8.1 Lymphocytes # (Auto) 0.3 Monocytes # (Auto) 0.3 Eosinophils # (Auto) 0.0 Basophils # (Auto) 0.2 CBC Comment AUTO DIFF Differential Total Cells Counted 100 Neutrophils % (Manual) 85 Band Neutrophils % 10 Lymphocytes % 3 Monocytes % 2 Neutrophils # (Manual) 8.5 Differential Comment FINAL DIFF MANUAL Atypical Lymphocytes Toxic Vacuolation PRESENT Platelet Estimate NORMAL Platelet Morphology Comment NORMAL Red Cell Morphology Comment NORMAL Blood Urea Nitrogen 10 Creatinine 0.89 Random Glucose 127 Total Protein 6.3 Albumin 2.7 Calcium Level 8.1 Magnesium Level 1.2 Alkaline Phosphatase 95 Aspartate Amino Transf (AST/SGOT) 31 Alanine Aminotransferase (ALT/SGPT) 54 Total Bilirubin 1.1 Sodium Level 137 Potassium Level 3.4 Chloride Level 108 Carbon Dioxide Level 20.8 Anion Gap 8 Estimat Glomerular Filtration Rate 66 Lactic Acid Level 1.7 Date/Time Source Procedure Growth Status 01/04/17 22:50 Urine Catheterized Urine Urine Culture Pending Received Result Diagram: 01/04/17225101/04/172251 Caprini VTE Risk Assessment Caprini VTE Risk Assessment: No/Low Risk (score <= 1) Caprini Risk Assessment Model Point Value = 1 Point Value = 2 Point Value = 3 Point Value = 5 Age 41-60 Minor surgery BMI > 25 kg/m2 Swollen legs Varicose veins or History of unexplained or recurrent spontaneous Oral contraceptives or hormone replacement Sepsis (< 1 month) Serious lung disease, including pneumonia (< 1 month) Abnormal pulmonary function Acute myocardial infarction Congestive heart failure (< 1 month) History of inflammatory bowel disease Medical patient at bed rest Age 61-74 Arthroscopic surgery Major open surgery (> 45 min) Laparoscopic surgery (> 45 min) Malignancy Confined to bed (> 72 hours) Immobilizing plaster cast Central venous access Age >= 75 History of VTE Family history of VTE Factor V Leiden Prothrombin [id number] Lupus anticoagulant Anticardiolipin antibodies Elevated serum homocysteine Heparin-induced thrombocytopenia Other congenital or acquired thrombophilia Stroke (< 1 month) Elective arthroplasty Hip, pelvis, or leg fracture Acute spinal cord injury (< 1 month) Prophylaxis Regimen Total Risk Factor Score Risk Level Prophylaxis Regimen 0-1 Low Early ambulation 2 Moderate Order ONE of the following: *Sequential Compression Device (SCD) *Heparin 5000 units SQ BID 3-4 Higher Order ONE of the following medications: *Heparin 5000 units SQ TID *Enoxaparin/Lovenox 40 mg SQ daily (WT < 150 kg, CrCl > 30 mL/min) *Enoxaparin/Lovenox 30 mg SQ daily (WT < 150 kg, CrCl > 10-29 mL/min) *Enoxaparin/Lovenox 30 mg SQ BID (WT < 150 kg, CrCl > 30 mL/min) AND/OR *Sequential Compression Device (SCD) 5 or more Highest Order ONE of the following medications: *Heparin 5000 units SQ TID (Preferred with Epidurals) *Enoxaparin/Lovenox 40 mg SQ daily (WT < 150 kg, CrCl > 30 mL/min) *Enoxaparin/Lovenox 30 mg SQ daily (WT < 150 kg, CrCl > 10-29 mL/min) *Enoxaparin/Lovenox 30 mg SQ BID (WT < 150 kg, CrCl > 30 mL/min) AND *Sequential Compression Device (SCD) Assessment and Plan Assessment and Plan 56-year-old female with past medical history significant for asthma presents with high fever, untreated urinary tract infection and positive blood cultures. 1. Sepsis Patient febrile to 105.1, tachycardic without leukocytosis. Lactic acid 1.7 4/4 blood cultures positive for gram-negative rods Follow blood cultures UA consistent with UTI, urine culture pending Vancomycin/Zosyn Chest x-ray without acute process, reviewed by me Repeat blood cultures pending Status post 3 L in the ED, continue IV fluids Infectious disease consulted, appreciate recommendations 2. UTI Treatment as above 3. Asthma Patient reports she has not needed her rescue inhaler in years Albuterol prn 4. Hypokalemia Supplement with by mouth potassium FEN Heart healthy diet NS at 125 cc/hour Electrolytes: Monitor and replete when necessary Heparin Physician Certification 2 Midnight Certification Type: Admission for Inpatient Services Order for Inpatient Services The services are ordered in accordance with Medicare regulations or non- Medicare payer requirements, as applicable. In the case of services not specified as inpatient-only, they are appropriately provided as inpatient services in accordance with the 2-midnight benchmark. Estimated LOS (days): 2 2 days is the estimated time the patient will need to remain in the hospital, assuming treatment plan goals are met and no additional complications. Post-Hospital Plan: Not yet determined Mary Norris MD Jan 05, 2017 02:51
[2017-01-05] MEDS ORDERED: RESP: ALBUTEROL CONC 2.5 MG/0.5 ML NEB NEB PRN (03:00)
[2017-01-05] MEDS: PIPERACIL-TAZO 3.375 GM PREMIX 50 ML IV SCH ×4 (05:01→23:02)
[2017-01-05 05:11] LABS: BASOPHIL % 0.4 % (0.0-2.0); EOSINOPHIL % 0.2 % (0.0-4.0); HEMATOCRIT 31.2 % (35.0-46.0); HEMO FLAGS DIFF FINAL; LYMPH % 8.8 % (9.0-44.0); LYMPHOCYTE # 0.9 TH/MM3 (1.0-4.8); MEAN CELL VOLUME 91.2 FL (80.0-100.0); MEAN CORPUSCULAR HEMOGLOBIN 31.1 PG (27.0-34.0); MEAN CORPUSCULAR HGB CONC 34.1 % (32.0-36.0); MONO % 7.8 % (0.0-8.0); NEUT % 82.8 % (16.0-70.0); PLATELET COUNT 140 TH/MM3 (150-450); RED BLOOD COUNT 3.43 MIL/MM3 (4.00-5.30); RED CELL DISTRIBUTION WIDTH 13.9 % (11.6-17.2); WHITE BLOOD COUNT 9.7 TH/MM3 (4.0-11.0)
[2017-01-05 05:46] LABS: BICARBONATE 20.8 MEQ/L (21.0-32.0); POTASSIUM 3.9 MEQ/L (3.5-5.1)
[2017-01-05 06:00] LABS: CALCIUM-PROTEIN CORRECTED 8.2 MG/DL (8.5-10.1)
[2017-01-05] MEDS ORDERED: SODIUM CHLORIDE 0.9% FLUSH 10 ML FLUSH IV FLUSH SCH (09:00)
[2017-01-05] MEDS ORDERED: DOCUSATE SODIUM 50 MG/SENNA 8.6 MG TAB PO SCH (09:00)
[2017-01-05] MEDS ORDERED: VANCOMYCIN INJ 1,000 MG in SODIUM CHLOR 0.9% 250 ML INJ 250 ML IV SCH (11:00)
--- NOTE | 2017-01-05 11:23 | HHI.PR ---
Subjective Remarks 56-year-old female with a past medical history significant for asthma presents with fever/chills and body aches. The patient states her fevers have been getting steadily worse since Sunday. She was seen in the emergency department on 01/03/17 and diagnosed with a UTI. She was given a prescription for Macrobid however she was unable to fill the prescription. She reports instead she took an old antibiotic that she had at home, Cipro 1 dose. She denies any symptoms of dysuria. On arrival to the emergency department her temperature was 105.1. She was tachycardic to 131. 4/4 blood cultures drawn on 01/03/17 were positive for gram-negative rods. Urine showed rare bacteria, negative leukocyte esterase and negative nitrites. Urine from 01/03 had large leukocyte esterase with 28 WBCs. Patient also recently had a dental implant placed. 01-05 complaining of chills and body aches and fevers Please see previous history Continue on antibiotics with vancomycin and Zosyn at this time we will de- escalate as able Discussed with patient and RN Objective Vitals Vital Signs Date Time Temp Pulse Resp B/P (MAP) Pulse Ox O2 Delivery O2 Flow Rate FiO2 01/05/17 08:00 97.2 83 16 115/56 (75) 97 01/05/17 03:30 97.9 95 18 107/55 (72) 97 01/05/17 01:54 99.5 101 19 114/59 (77) 100 Room Air 01/04/17 22:57 22 99 Nasal Cannula 2.00 01/04/17 22:57 99 Nasal Cannula 2.00 01/04/17 22:45 103.0 126 22 118/56 (76) 99 Nasal Cannula 2.00 01/04/17 21:57 105.1 131 16 145/65 (91) 97 Room Air I/O 01/04/17 01/04/17 01/04/17 01/05/17 01/05/17 01/05/17 07:00 15:00 23:00 07:00 15:00 23:00 Intake Total 120 ml Output Total 250 ml Balance -130 ml Intake Oral 120 ml Output Urine Total 250 ml # Voids 1 # Bowel Movements 0 Result Diagram: 01/05/17 0427 01/05/17 0427 Other Results Laboratory Tests Test 01/04/17 22:50 01/04/17 22:52 01/05/17 04:27 Urine Color LIGHT-YELLOW Urine Turbidity CLEAR Urine pH 5.5 Urine Specific [place] 1.007 Urine Protein 30 mg/dL Urine Glucose (UA) NEG mg/dL Urine Ketones 10 mg/dL Urine Occult Blood MOD Urine Nitrite NEG Urine Bilirubin NEG Urine Urobilinogen LESS THAN 2.0 MG/DL Urine Leukocyte Esterase NEG Urine RBC 8 /hpf Urine WBC 4 /hpf Urine Squamous Epithelial Cells <1 /hpf Urine Transitional Epithelial Cells <1 /hpf Urine Amorphous Sediment OCC Urine Bacteria RARE /hpf Urine Mucus FEW /lpf Microscopic Urinalysis Comment CATH-CULTURE IND White Blood Count 8.9 TH/MM3 9.7 TH/MM3 Red Blood Count 3.69 MIL/MM3 3.43 MIL/MM3 Hemoglobin 11.3 GM/DL 10.6 GM/DL Hematocrit 33.2 % 31.2 % Mean Corpuscular Volume 89.9 FL 91.2 FL Mean Corpuscular Hemoglobin 30.7 PG 31.1 PG Mean Corpuscular Hemoglobin Concent 34.2 % 34.1 % Red Cell Distribution Width 13.5 % 13.9 % Platelet Count 158 TH/MM3 140 TH/MM3 Mean Platelet Volume 7.9 FL 8.4 FL Neutrophils (%) (Auto) 90.9 % 82.8 % Lymphocytes (%) (Auto) 3.5 % 8.8 % Monocytes (%) (Auto) 3.3 % 7.8 % Eosinophils (%) (Auto) 0.2 % 0.2 % Basophils (%) (Auto) 2.1 % 0.4 % Neutrophils # (Auto) 8.1 TH/MM3 8.0 TH/MM3 Lymphocytes # (Auto) 0.3 TH/MM3 0.9 TH/MM3 Monocytes # (Auto) 0.3 TH/MM3 0.8 TH/MM3 Eosinophils # (Auto) 0.0 TH/MM3 0.0 TH/MM3 Basophils # (Auto) 0.2 TH/MM3 0.0 TH/MM3 CBC Comment AUTO DIFF DIFF FINAL Differential Total Cells Counted 100 Neutrophils % (Manual) 85 % Band Neutrophils % 10 % Lymphocytes % 3 % Monocytes % 2 % Neutrophils # (Manual) 8.5 TH/MM3 Differential Comment FINAL DIFF MANUAL Atypical Lymphocytes % Toxic Vacuolation PRESENT Platelet Estimate NORMAL Platelet Morphology Comment NORMAL Red Cell Morphology Comment NORMAL Blood Urea Nitrogen 10 MG/DL 7 MG/DL Creatinine 0.89 MG/DL 0.68 MG/DL Random Glucose 127 MG/DL 124 MG/DL Total Protein 6.3 GM/DL 5.6 GM/DL Albumin 2.7 GM/DL Calcium Level 8.1 MG/DL 7.4 MG/DL Magnesium Level 1.2 MG/DL Alkaline Phosphatase 95 U/L Aspartate Amino Transf (AST/SGOT) 31 U/L Alanine Aminotransferase (ALT/SGPT) 54 U/L Total Bilirubin 1.1 MG/DL Sodium Level 137 MEQ/L 144 MEQ/L Potassium Level 3.4 MEQ/L 3.9 MEQ/L Chloride Level 108 MEQ/L 114 MEQ/L Carbon Dioxide Level 20.8 MEQ/L 20.8 MEQ/L Anion Gap 8 MEQ/L 9 MEQ/L Estimat Glomerular Filtration Rate 66 ML/MIN 90 ML/MIN Lactic Acid Level 1.7 mmol/L Protein Corrected Calcium 8.2 MG/DL Objective Remarks GENERAL: female lying in bed awake alert oriented talkative and cooperative SKIN: No rashes, ecchymoses or lesions. Cool and dry. HEAD: Atraumatic. Normocephalic. No temporal or scalp tenderness. EYES: Pupils equal round and reactive. Extraocular motions intact. No scleral icterus. No injection or drainage. ENT: Nose without bleeding, purulent drainage or septal hematoma. Throat without erythema, tonsillar hypertrophy or exudate. Uvula midline. Airway patent. Tongue is midline NECK: Trachea midline. No JVD or lymphadenopathy. Supple, nontender, no meningeal signs. CARDIOVASCULAR: Regular rate and rhythm without murmurs, gallops, or rubs. RESPIRATORY: Clear to auscultation. Breath sounds equal bilaterally. No wheezes , rales, or rhonchi. GASTROINTESTINAL: Abdomen soft, nondistended. Tender to palpation in the suprapubic region. No hepato-splenomegaly, or palpable masses. No guarding. MUSCULOSKELETAL: Extremities without clubbing, cyanosis, or edema. No joint tenderness, effusion, or edema noted. No calf tenderness. Negative Homans sign bilaterally. NEUROLOGICAL: Awake and alert. Cranial nerves II through XII intact. Motor and sensory grossly within normal limits. Normal speech. Patient is awake alert and oriented talkative and cooperative Insight and judgment is good Mood and behaviors appropriate Medications and IVs Current Medications Ibuprofen (Motrin) 800 mg ONCE ONCE PO ; Start 01/04/17 at 22:30; Stop at 22:31; Status DC Sodium Chloride 1,000 ml @ 1,000 mls/hr Q1H ONCE IV Last administered on 01/04 22:55; Start 01/04/17 at 22:27; Stop 01/04/17 at 23:26; Status DC Sodium Chloride 1,000 ml @ 1,000 mls/hr Q1H ONCE IV Last administered on 01/04 22:56; Start 01/04/17 at 22:27; Stop 01/04/17 at 23:26; Status DC Sodium Chloride 100 ml @ 1,000 mls/hr Q6M ONCE IV Last administered on 22:55; Start 01/04/17 at 22:27; Stop 01/04/17 at 22:32; Status DC Piperacillin Sod/ Tazobactam Sod 100 ml @ 200 mls/hr ONCE STAT IV Last administered on 01/04/17 22:56; Start 01/04/17 at 22:38; Stop 01/04/17 at 23 :07; Status DC Vancomycin HCl 1000 mg/Sodium Chloride 250 ml @ 250 mls/hr ONCE STAT IV Last administered on 01/05/17 00:20; Start 01/04/17 at 22:38; Stop 01/04/17 at 23 :37; Status DC Pharmacy Profile Note 0 ml @ 0 mls/hr UNSCH OTHER ; Start 01/05/17 at 01:15 Vancomycin HCl 1000 mg/Sodium Chloride 250 ml @ 250 mls/hr Q12H IV ; Start at 11:00; Stop 01/05/17 at 11:00; Status DC Piperacillin Sod/ Tazobactam Sod 50 ml @ 100 mls/hr Q6H IV Last administered on 01/05/17 05:01; Start 01/05/17 at 05:00 Sodium Chloride 1,000 ml @ 125 mls/hr Q8H IV Last administered on 01/05/17 01:24; Start 01/05/17 at 01:01 Sodium Chloride (NS Flush) 2 ml UNSCH PRN IV FLUSH FLUSH AFTER USING IV ACCESS ; Start 01/05/17 at 01:15 Sodium Chloride (NS Flush) 2 ml BID IV FLUSH ; Start 01/05/17 at 09:00 Acetaminophen (Tylenol) 650 mg Q4H PRN PO TEMP > 100.4; Start 01/05/17 at 01: 15 Ondansetron HCl (Zofran Inj) 4 mg Q6H PRN IVP NAUSEA OR VOMITING; Start at 01:15 Naloxone HCl (Narcan Inj) 0.4 mg UNSCH PRN IV PUSH SEE LABEL COMMENTS; Start 01/05/17 at 01:15 Senna/Docusate Sodium (Coby-Colace) 1 tab BID PO ; Start 01/05/17 at 09:00 Magnesium Hydroxide (Milk Of Magnesia Liq) 30 ml Q12H PRN PO Mild constipation ; Start 01/05/17 at 01:15 Sennosides (Senokot) 17.2 mg Q12H PRN PO Moderate constipation; Start at 01:15 Bisacodyl (Dulcolax Supp) 10 mg DAILY PRN RECTAL SEVERE CONSITIPATION; Start 01/05/17 at 01:15 Lactulose (Lactulose Liq) 30 ml DAILY PRN PO SEVERE CONSITIPATION; Start 01/05 at 01:15 Potassium Chloride (KCl) 40 meq ONCE ONCE PO Last administered on 01/05/17t 01:41; Start 01/05/17 at 01:15; Stop 01/05/17 at 01:16; Status DC Albuterol Sulfate (Albuterol Concentrated Neb) 2.5 mg Q4HR NEB PRN NEB SOB/ Wheezing; Start 01/05/17 at 03:00 Influenza Virus Vaccine (Flu (Quadrivalent) Vaccine Inj) 0.5 ml ONCE ONCE IM ; Start 01/06/17 at 09:00; Stop 01/06/17 at 09:01 Vancomycin HCl 1000 mg/Sodium Chloride 250 ml @ 250 mls/hr Q12H IV ; Start at 12:00 Miscellaneous Information SPECIFIC LAB TO BE ... ONCE ONCE .XX ; Start at 11:45; Stop 01/06/17 at 11:46 A/P Assessment and Plan 56-year-old female with past medical history significant for asthma presents with high fever, untreated urinary tract infection and positive blood cultures. 1. Sepsis Patient febrile to 105.1, tachycardic without leukocytosis. Lactic acid 1.7 / blood cultures positive for gram-negative rods Follow blood cultures UA consistent with UTI, urine culture pending Vancomycin/Zosyn Chest x-ray without acute process, reviewed by me Repeat blood cultures pending Status post 3 L in the ED, continue IV fluids Infectious disease consulted, appreciate recommendations Patient was diagnosed with urinary tract infection a few days ago never went and got the medications 2. UTI Treatment as above 3. Asthma Patient reports she has not needed her rescue inhaler in years Albuterol prn 4. Hypokalemia Supplement with by mouth potassium FEN Heart healthy diet NS at 125 cc/hour Electrolytes: Monitor and replete when necessary Heparin A.m. labs Increase activity Discharge Planning Increase activity Don Whelan DO Jan 05, 2017 11:23
--- NOTE | 2017-01-05 11:53 | PD.ID.CON ---
History of Present Illness Service ID Consult Requested By Dr Castillo Reason for Consult bacteremia Primary Care Physician Spike Lutz MD Diagnoses: History of Present Illness 56 yo F presetnd yday with fever 105 She apparently was seen on 01/03 in ER for UTI and prescribed Macrobid At that point nl WBC, but UA with pyuria of 24 Pt denies any disuria, urine cloudiness or smell She took home cipro instead and came back with worsening smx Her urine clx is cw contamination and blood clx growing GNB (Kleb) 4/4 bottles Started on Zosyn She feels that her feevers are coming aback, but no documented fever today Review of Systems Constitutional: COMPLAINS OF: Fever, Chills Gastrointestinal: COMPLAINS OF: Abdominal pain Except as stated in HPI: all other systems reviewed are Neg Past Family Social History Allergies: Coded Allergies: shellfish derived (Unverified Allergy, Severe, TINGLING AND ITCHING IN MOUTH AND THROAT, 01/04/17) Past Medical History Asthma Past Surgical History Tonsillectomy Appendectomy Left knee meniscal repair Active Ordered Medications Medications where reviewed in EMR Antibiotics Include: zosyn vancomycin Family History Father with cardiac disease. Social History Denies smoking. Occasional alcohol. Denies marijuana or illicit drugs. Physical Exam Vital Signs Vital Signs Date Time Temp Pulse Resp B/P (MAP) Pulse Ox O2 Delivery O2 Flow Rate FiO2 01/05/17 08:00 97.2 83 16 115/56 (75) 97 01/05/17 03:30 97.9 95 18 107/55 (72) 97 01/05/17 01:54 99.5 101 19 114/59 (77) 100 Room Air 01/04/17 22:57 22 99 Nasal Cannula 2.00 01/04/17 22:57 99 Nasal Cannula 2.00 01/04/17 22:45 103.0 126 22 118/56 (76) 99 Nasal Cannula 2.00 01/04/17 21:57 105.1 131 16 145/65 (91) 97 Room Air Physical Exam CONSTITUTIONAL/GENERAL: This is an adequately nourished patient, in no apparent distress. TUBES/LINES/DRAINS: SKIN: No jaundice, rashes, or lesions. Ecchymoses on upper extremities. No wounds seen anteriorly. Skin temperature appropriate. Not diaphoretic. HEAD: Atraumatic. Normocephalic. EYES: Pupils equal and round and reactive. Extraocular motions intact. No scleral icterus. No injection or drainage. Fundi not examined. ENT: Hearing grossly normal. Nose without bleeding or purulent drainage. Throat without visible erythema, exudates, masses, or lesions. NECK: Trachea midline. Supple, nontender. No palpable thyroid enlargement or nodularity. CARDIOVASCULAR: Regular rate and rhythm without murmurs, gallops, or rubs. No JVD. Peripheral pulses symmetric. RESPIRATORY/CHEST: Symmetric, unlabored respirations. Clear to auscultation. Breath sounds equal bilaterally. No wheezes, rales, or rhonchi. GASTROINTESTINAL: Abdomen soft, + mild epigastral tenderness, nondistended. No hepato-splenomegaly, or palpable masses. No guarding. Bowel sounds present. GENITOURINARY: Without palpable bladder distension. + CVA tenderness on L MUSCULOSKELETAL: Extremities without clubbing, cyanosis, or edema. No joint tenderness or effusion noted. No calf tenderness. No mottling or clubbing. LYMPHATICS: No palpable cervical or supraclavicular adenopathy. NEUROLOGICAL: Awake and alert. Motor and sensory grossly within normal limits. Follows commands. Clear speech. Moves all extremities. PSYCHIATRIC: No obvious anxiety/depression. no apparent hallucinations or other psychotic thought process. Laboratory Laboratory Tests Test 01/04/17 22:50 01/04/17 22:52 01/05/17 04:27 Urine Color LIGHT-YELLOW Urine Turbidity CLEAR Urine pH 5.5 Urine Specific [place] 1.007 Urine Protein 30 Urine Glucose (UA) NEG Urine Ketones 10 Urine Occult Blood MOD Urine Nitrite NEG Urine Bilirubin NEG Urine Urobilinogen LESS THAN 2.0 Urine Leukocyte Esterase NEG Urine RBC 8 Urine WBC 4 Urine Squamous Epithelial Cells <1 Urine Transitional Epithelial Cells <1 Urine Amorphous Sediment OCC Urine Bacteria RARE Urine Mucus FEW Microscopic Urinalysis Comment CATH-CULTURE IND White Blood Count 8.9 9.7 Red Blood Count 3.69 3.43 Hemoglobin 11.3 10.6 Hematocrit 33.2 31.2 Mean Corpuscular Volume 89.9 91.2 Mean Corpuscular Hemoglobin 30.7 31.1 Mean Corpuscular Hemoglobin Concent 34.2 34.1 Red Cell Distribution Width 13.5 13.9 Platelet Count 158 140 Mean Platelet Volume 7.9 8.4 Neutrophils (%) (Auto) 90.9 82.8 Lymphocytes (%) (Auto) 3.5 8.8 Monocytes (%) (Auto) 3.3 7.8 Eosinophils (%) (Auto) 0.2 0.2 Basophils (%) (Auto) 2.1 0.4 Neutrophils # (Auto) 8.1 8.0 Lymphocytes # (Auto) 0.3 0.9 Monocytes # (Auto) 0.3 0.8 Eosinophils # (Auto) 0.0 0.0 Basophils # (Auto) 0.2 0.0 CBC Comment AUTO DIFF DIFF FINAL Differential Total Cells Counted 100 Neutrophils % (Manual) 85 Band Neutrophils % 10 Lymphocytes % 3 Monocytes % 2 Neutrophils # (Manual) 8.5 Differential Comment FINAL DIFF MANUAL Atypical Lymphocytes Toxic Vacuolation PRESENT Platelet Estimate NORMAL Platelet Morphology Comment NORMAL Red Cell Morphology Comment NORMAL Blood Urea Nitrogen 10 7 Creatinine 0.89 0.68 Random Glucose 127 124 Total Protein 6.3 5.6 Albumin 2.7 Calcium Level 8.1 7.4 Magnesium Level 1.2 Alkaline Phosphatase 95 Aspartate Amino Transf (AST/SGOT) 31 Alanine Aminotransferase (ALT/SGPT) 54 Total Bilirubin 1.1 Sodium Level 137 144 Potassium Level 3.4 3.9 Chloride Level 108 114 Carbon Dioxide Level 20.8 20.8 Anion Gap 8 9 Estimat Glomerular Filtration Rate 66 90 Lactic Acid Level 1.7 Protein Corrected Calcium 8.2 Date/Time Source Procedure Growth Status 01/04/17 22:50 Urine Catheterized Urine Urine Culture - Preliminary NO GROWTH IN 24 HOURS. Resulted Result Diagram: 01/05/177 01/05/17426 Assessment and Plan Assessment and Plan Klebsiella high brade bacteremia, source GI/, probably L pyelonephritis - UA and clin exam w pyelo, but urine clx are negative Cont zosyn dc vancomycin fu clinically might need to repeat blood clx if cont to have fever Discussed Condition With Azucena Maldonado MD Jan 05, 2017 11:53
[2017-01-05] MEDS ORDERED: VANCOMYCIN 1,000 MG/NS 250 ML IV SCH ×2 (12:00)
--- NOTE | 2017-01-05 13:21 | EKG ---
Date Performed: 01/04/2017 Time Performed: 22:39:10 PTAGE: 56 years EKG: SINUS TACHYCARDIA NONSPECIFIC T-WAVE ABNORMALITY ABNORMAL RHYTHM ECG Compared to PREVIOUS TRACING , the rate has increased significantly. PREVIOUS TRACIN06/23/2016 06. 42 DOCTOR: Masood Mahan Interpretating Date/Time 01/05/2017 13:20:54
[2017-01-05] MEDS: ACETAMINOPHEN 325 MG TAB PO PRN (14:04)
[2017-01-05] MEDS ORDERED: MORPHINE SULFATE 4 MG/ML INJ IV PUSH PRN ×2 (14:30→15:00)
[2017-01-05] MEDS ORDERED: oxyCODONE/ACETAMINOPHEN 5 MG/325 MG TAB PO PRN (15:00)
[2017-01-05] MEDS ORDERED: oxyCODONE/ACETAMINOPHEN 10 MG/325 MG TAB PO PRN (15:00)
[2017-01-05] MEDS ORDERED: PROCHLORPERAZINE 25 MG SUPP RECTAL PRN (15:00)
[2017-01-05] MEDS: PANTOPRAZOLE SOD 40 MG DELAYED RELEASE TAB PO SCH ×2 (16:43→21:14)
[2017-01-05] MEDS: IBUPROFEN 600 MG TAB PO PRN ×2 (16:43→21:21)
[2017-01-05] MEDS: SODIUM CHLORIDE 0.9% FLUSH 10 ML FLUSH IV FLUSH SCH (21:00)
[2017-01-05] MEDS: DOCUSATE SODIUM 50 MG/SENNA 8.6 MG TAB PO SCH (21:00)
[2017-01-05] MEDS: ZOLPIDEM TARTRATE 5 MG TAB PO PRN (21:21)
[2017-01-06] VITALS (9 sets, daily range): BP systolic 96–121; BP diastolic 52–59; PULSE 82–111; RESP 17–20; TEMP 96.6–101.1; O2SAT 94–97
[2017-01-06] MEDS: PIPERACIL-TAZO 3.375 GM PREMIX 50 ML IV SCH ×2 (04:12→09:38)
[2017-01-06] MEDS: SODIUM CHLOR 0.9% 1000 ML INJ 1,000 ML IV SCH ×3 (04:13→12:06)
[2017-01-06 07:10] LABS: BASOPHIL % 0.5 % (0.0-2.0); EOSINOPHIL # 0.1 TH/MM3 (0-0.4); EOSINOPHIL % 0.9 % (0.0-4.0); HEMATOCRIT 29.6 % (35.0-46.0); HEMO FLAGS DIFF FINAL; LYMPH % 10.8 % (9.0-44.0); LYMPHOCYTE # 1.1 TH/MM3 (1.0-4.8); MEAN CELL VOLUME 90.4 FL (80.0-100.0); MEAN CORPUSCULAR HEMOGLOBIN 31.8 PG (27.0-34.0); MEAN CORPUSCULAR HGB CONC 35.2 % (32.0-36.0); MONO % 6.5 % (0.0-8.0); NEUT % 81.3 % (16.0-70.0); PLATELET COUNT 118 TH/MM3 (150-450); RED BLOOD COUNT 3.27 MIL/MM3 (4.00-5.30); RED CELL DISTRIBUTION WIDTH 13.8 % (11.6-17.2); WHITE BLOOD COUNT 9.9 TH/MM3 (4.0-11.0)
[2017-01-06 07:46] LABS: ALT (GPT) 43 U/L (10-53); ANION GAP 7 MEQ/L (5-15); AST (GOT) 19 U/L (15-37); BICARBONATE 21.7 MEQ/L (21.0-32.0); BLOOD UREA NITROGEN 8 MG/DL (7-18); CHLORIDE 112 MEQ/L (98-107); GLOMERULAR FILTRATION RATE 98 ML/MIN (>89); MAGNESIUM 1.8 MG/DL (1.5-2.5); POTASSIUM 3.5 MEQ/L (3.5-5.1); SODIUM (NA) 141 MEQ/L (136-145)
[2017-01-06 07:50] LABS: ALKALINE PHOSPHATASE 114 U/L (45-117); FREE T4 1.07 NG/DL (0.76-1.46); TOTAL BILIRUBIN ADULT 0.7 MG/DL (0.2-1.0)
[2017-01-06] MEDS ORDERED: INFLUENZA VIRUS VACCINE (QUADRIVALENT) 0.5 ML SYR IM ONE (09:00)
[2017-01-06] MEDS: SODIUM CHLORIDE 0.9% FLUSH 10 ML FLUSH IV FLUSH SCH ×2 (09:37→19:54)
[2017-01-06] MEDS: PANTOPRAZOLE SOD 40 MG DELAYED RELEASE TAB PO SCH ×2 (09:37→19:57)
[2017-01-06] MEDS: DOCUSATE SODIUM 50 MG/SENNA 8.6 MG TAB PO SCH ×2 (09:38→19:54)
--- NOTE | 2017-01-06 10:33 | HHI.PR ---
Subjective Remarks 56-year-old female with a past medical history significant for asthma presents with fever/chills and body aches. The patient states her fevers have been getting steadily worse since Sunday. She was seen in the emergency department on 01/03/17 and diagnosed with a UTI. She was given a prescription for Macrobid however she was unable to fill the prescription. She reports instead she took an old antibiotic that she had at home, Cipro 1 dose. She denies any symptoms of dysuria. On arrival to the emergency department her temperature was 105.1. She was tachycardic to 131. 4/4 blood cultures drawn on 01/03/17 were positive for gram-negative rods. Urine showed rare bacteria, negative leukocyte esterase and negative nitrites. Urine from 01/03 had large leukocyte esterase with 28 WBCs. Patient also recently had a dental implant placed. 01-05 complaining of chills and body aches and fevers Please see previous history Continue on antibiotics with vancomycin and Zosyn at this time we will de- escalate as able Discussed with patient and RN 01-06 HAD SOME FEVERS LAST NIGHT, HAVING DIARRHEA ADD LACTINEX CONTINUE CURRENT TREATMENT KLEBSIELLA ON CULTURES DW RN AND PT ANTIBIOTICS PER ID THINKS HER ASTHMA IS FLARING UP Objective Vitals Vital Signs Date Time Temp Pulse Resp B/P (MAP) Pulse Ox O2 Delivery O2 Flow Rate FiO2 01/06/17 08:00 96.6 96 18 106/56 (73) 97 01/06/17 04:30 97.3 91 18 104/56 (72) 96 01/06/17 01:30 99.9 111 20 107/52 (70) 95 01/05/17 21:13 98.8 96 20 96/53 (67) 100 01/05/17 16:00 100.9 107 16 119/58 (78) 96 01/05/17 14:04 103.2 01/05/17 12:00 99.6 97 16 131/61 (84) 100 I/O 01/05/17 01/05/17 01/05/17 01/06/17 01/06/17 01/06/17 07:00 15:00 23:00 07:00 15:00 23:00 Intake Total 120 ml 480 ml 580 ml Output Total 250 ml 1200 ml Balance -130 ml 480 ml -620 ml Intake Oral 120 ml 480 ml 480 ml IV Total 100 ml Output Urine Total 250 ml 1200 ml # Voids 1 # Bowel Movements 0 Result Diagram: 01/06/17 0601/06/17 06 Other Results Laboratory Tests Test 01/04/17 22:50 01/04/17 22:52 01/05/17 04:27 01/06/17 06:05 Urine Color LIGHT-YELLOW Urine Turbidity CLEAR Urine pH 5.5 Urine Specific [place] 1.007 Urine Protein 30 mg/dL Urine Glucose (UA) NEG mg/dL Urine Ketones 10 mg/dL Urine Occult Blood MOD Urine Nitrite NEG Urine Bilirubin NEG Urine Urobilinogen LESS THAN 2.0 MG/DL Urine Leukocyte Esterase NEG Urine RBC 8 /hpf Urine WBC 4 /hpf Urine Squamous Epithelial Cells <1 /hpf Urine Transitional Epithelial Cells <1 /hpf Urine Amorphous Sediment OCC Urine Bacteria RARE /hpf Urine Mucus FEW /lpf Microscopic Urinalysis Comment CATH-CULTURE IND White Blood Count 8.9 TH/MM3 9.7 TH/MM3 9.9 TH/MM3 Red Blood Count 3.69 MIL/MM3 3.43 MIL/MM3 3.27 MIL/MM3 Hemoglobin 11.3 GM/DL 10.6 GM/DL 10.4 GM/DL Hematocrit 33.2 % 31.2 % 29.6 % Mean Corpuscular Volume 89.9 FL 91.2 FL 90.4 FL Mean Corpuscular Hemoglobin 30.7 PG 31.1 PG 31.8 PG Mean Corpuscular Hemoglobin Concent 34.2 % 34.1 % 35.2 % Red Cell Distribution Width 13.5 % 13.9 % 13.8 % Platelet Count 158 TH/MM3 140 TH/MM3 118 TH/MM3 Mean Platelet Volume 7.9 FL 8.4 FL 9.0 FL Neutrophils (%) (Auto) 90.9 % 82.8 % 81.3 % Lymphocytes (%) (Auto) 3.5 % 8.8 % 10.8 % Monocytes (%) (Auto) 3.3 % 7.8 % 6.5 % Eosinophils (%) (Auto) 0.2 % 0.2 % 0.9 % Basophils (%) (Auto) 2.1 % 0.4 % 0.5 % Neutrophils # (Auto) 8.1 TH/MM3 8.0 TH/MM3 8.0 TH/MM3 Lymphocytes # (Auto) 0.3 TH/MM3 0.9 TH/MM3 1.1 TH/MM3 Monocytes # (Auto) 0.3 TH/MM3 0.8 TH/MM3 0.6 TH/MM3 Eosinophils # (Auto) 0.0 TH/MM3 0.0 TH/MM3 0.1 TH/MM3 Basophils # (Auto) 0.2 TH/MM3 0.0 TH/MM3 0.0 TH/MM3 CBC Comment AUTO DIFF DIFF FINAL DIFF FINAL Differential Total Cells Counted 100 Neutrophils % (Manual) 85 % Band Neutrophils % 10 % Lymphocytes % 3 % Monocytes % 2 % Neutrophils # (Manual) 8.5 TH/MM3 Differential Comment FINAL DIFF MANUAL Atypical Lymphocytes % Toxic Vacuolation PRESENT Platelet Estimate NORMAL Platelet Morphology Comment NORMAL Red Cell Morphology Comment NORMAL Blood Urea Nitrogen 10 MG/DL 7 MG/DL 8 MG/DL Creatinine 0.89 MG/DL 0.68 MG/DL 0.63 MG/DL Random Glucose 127 MG/DL 124 MG/DL 104 MG/DL Total Protein 6.3 GM/DL 5.6 GM/DL 5.7 GM/DL Albumin 2.7 GM/DL 2.2 GM/DL Calcium Level 8.1 MG/DL 7.4 MG/DL 8.3 MG/DL Magnesium Level 1.2 MG/DL 1.8 MG/DL Alkaline Phosphatase 95 U/L 114 U/L Aspartate Amino Transf (AST/SGOT) 31 U/L 19 U/L Alanine Aminotransferase (ALT/SGPT) 54 U/L 43 U/L Total Bilirubin 1.1 MG/DL 0.7 MG/DL Sodium Level 137 MEQ/L 144 MEQ/L 141 MEQ/L Potassium Level 3.4 MEQ/L 3.9 MEQ/L 3.5 MEQ/L Chloride Level 108 MEQ/L 114 MEQ/L 112 MEQ/L Carbon Dioxide Level 20.8 MEQ/L 20.8 MEQ/L 21.7 MEQ/L Anion Gap 8 MEQ/L 9 MEQ/L 7 MEQ/L Estimat Glomerular Filtration Rate 66 ML/MIN 90 ML/MIN 98 ML/MIN Lactic Acid Level 1.7 mmol/L Protein Corrected Calcium 8.2 MG/DL Phosphorus Level 1.6 MG/DL Free Thyroxine 1.07 NG/DL Thyroid Stimulating Hormone 3rd Gen 1.370 uIU/ML Objective Remarks GENERAL: female lying in bed awake alert oriented talkative and cooperative SKIN: No rashes, ecchymoses or lesions. Cool and dry. HEAD: Atraumatic. Normocephalic. No temporal or scalp tenderness. EYES: Pupils equal round and reactive. Extraocular motions intact. No scleral icterus. No injection or drainage. ENT: Nose without bleeding, purulent drainage or septal hematoma. Throat without erythema, tonsillar hypertrophy or exudate. Uvula midline. Airway patent. Tongue is midline NECK: Trachea midline. No JVD or lymphadenopathy. Supple, nontender, no meningeal signs. CARDIOVASCULAR: Regular rate and rhythm without murmurs, gallops, or rubs. RESPIRATORY: Clear to auscultation. Breath sounds equal bilaterally. No wheezes , rales, or rhonchi. GASTROINTESTINAL: Abdomen soft, nondistended. Tender to palpation in the suprapubic region. No hepato-splenomegaly, or palpable masses. No guarding. NO CVA TENDERNESS MUSCULOSKELETAL: Extremities without clubbing, cyanosis, or edema. No joint tenderness, effusion, or edema noted. No calf tenderness. Negative Homans sign bilaterally. NEUROLOGICAL: Awake and alert. Cranial nerves II through XII intact. Motor and sensory grossly within normal limits. Normal speech. Patient is awake alert and oriented talkative and cooperative Insight and judgment is good Mood and behaviors appropriate Procedures NONE Medications and IVs Current Medications Ibuprofen (Motrin) 800 mg ONCE ONCE PO ; Start 01/04/17 at 22:30; Stop at 22:31; Status DC Sodium Chloride 1,000 ml @ 1,000 mls/hr Q1H ONCE IV Last administered on 01/04 22:55; Start 01/04/17 at 22:27; Stop 01/04/17 at 23:26; Status DC Sodium Chloride 1,000 ml @ 1,000 mls/hr Q1H ONCE IV Last administered on 01/04 22:56; Start 01/04/17 at 22:27; Stop 01/04/17 at 23:26; Status DC Sodium Chloride 100 ml @ 1,000 mls/hr Q6M ONCE IV Last administered on 22:55; Start 01/04/17 at 22:27; Stop 01/04/17 at 22:32; Status DC Piperacillin Sod/ Tazobactam Sod 100 ml @ 200 mls/hr ONCE STAT IV Last administered on 01/04/17 22:56; Start 01/04/17 at 22:38; Stop 01/04/17 at 23 :07; Status DC Vancomycin HCl 1000 mg/Sodium Chloride 250 ml @ 250 mls/hr ONCE STAT IV Last administered on 01/05/17 00:20; Start 01/04/17 at 22:38; Stop 01/04/17 at 23 :37; Status DC Pharmacy Profile Note 0 ml @ 0 mls/hr UNSCH OTHER ; Start 01/05/17 at 01:15; Stop 01/05/17 at 11:38; Status DC Vancomycin HCl 1000 mg/Sodium Chloride 250 ml @ 250 mls/hr Q12H IV ; Start at 11:00; Stop 01/05/17 at 11:00; Status DC Piperacillin Sod/ Tazobactam Sod 50 ml @ 100 mls/hr Q6H IV Last administered on 01/06/17 09:38; Start 01/05/17 at 05:00 Sodium Chloride 1,000 ml @ 125 mls/hr Q8H IV Last administered on 01/06/17 04:13; Start 01/05/17 at 01:01 Sodium Chloride (NS Flush) 2 ml UNSCH PRN IV FLUSH FLUSH AFTER USING IV ACCESS ; Start 01/05/17 at 01:15; Status Cancel Sodium Chloride (NS Flush) 2 ml BID IV FLUSH ; Start 01/05/17 at 09:00; Stop 01/05/17 at 14:51; Status DC Acetaminophen (Tylenol) 650 mg Q4H PRN PO TEMP > 100.4 Last administered on 14:04; Start 01/05/17 at 01:15 Ondansetron HCl (Zofran Inj) 4 mg Q6H PRN IVP NAUSEA OR VOMITING Last administered on 01/05/17 13:22; Start 01/05/17 at 01:15; Stop 01/05/17 at 14 :49; Status DC Naloxone HCl (Narcan Inj) 0.4 mg UNSCH PRN IV PUSH SEE LABEL COMMENTS; Start 01/05/17 at 01:15; Status Cancel Senna/Docusate Sodium (Coby-Colace) 1 tab BID PO ; Start 01/05/17 at 09:00; Stop 01/05/17 at 14:51; Status DC Magnesium Hydroxide (Milk Of Magnesia Liq) 30 ml Q12H PRN PO Mild constipation ; Start 01/05/17 at 01:15; Status Cancel Sennosides (Senokot) 17.2 mg Q12H PRN PO Moderate constipation; Start at 01:15; Status Cancel Bisacodyl (Dulcolax Supp) 10 mg DAILY PRN RECTAL SEVERE CONSITIPATION; Start 01/05/17 at 01:15; Status Cancel Lactulose (Lactulose Liq) 30 ml DAILY PRN PO SEVERE CONSITIPATION; Start 01/05 at 01:15; Status Cancel Potassium Chloride (KCl) 40 meq ONCE ONCE PO Last administered on 01/05/17 01:41; Start 01/05/17 at 01:15; Stop 01/05/17 at 01:16; Status DC Albuterol Sulfate (Albuterol Concentrated Neb) 2.5 mg Q4HR NEB PRN NEB SOB/ Wheezing; Start 01/05/17 at 03:00 Influenza Virus Vaccine (Flu (Quadrivalent) Vaccine Inj) 0.5 ml ONCE ONCE IM ; Start 01/06/17 at 09:00; Stop 01/06/17 at 09:01; Status DC Vancomycin HCl 1000 mg/Sodium Chloride 250 ml @ 250 mls/hr Q12H IV Last administered on 01/05/17 11:11; Start 01/05/17 at 12:00; Stop 01/05/17 at 12 :00; Status DC Miscellaneous Information SPECIFIC LAB TO BE YAIR... ONCE ONCE .XX ; Start at 11:45; Stop 01/06/17 at 11:46; Status Cancel Ibuprofen (Motrin) 600 mg Q6H PRN PO fever/muscle aches Last administered on 21:21; Start 01/05/17 at 14:30 Pantoprazole Sodium (Protonix) 40 mg Q12HR PO Last administered on 01/06/17 09:37; Start 01/05/17 at 15:00 Sodium Chloride (NS Flush) 2 ml UNSCH PRN IV FLUSH FLUSH AFTER USING IV ACCESS ; Start 01/05/17 at 15:00 Sodium Chloride (NS Flush) 2 ml BID IV FLUSH ; Start 01/05/17 at 21:00 Ondansetron HCl (Zofran Inj) 4 mg Q6H PRN IVP NAUSEA OR VOMITING; Start at 15:00; Status Cancel Prochlorperazine (Compazine Supp) 25 mg Q12H PRN RECTAL NAUSEA OR VOMITING; Start 01/05/17 at 15:00 Zolpidem Tartrate (Ambien) 5 mg HS PRN PO INSOMNIA Last administered on 21:21; Start 01/05/17 at 21:00 Oxycodone/ Acetaminophen (Percocet 5-325 Mg) 1 tab Q6H PRN PO PAIN SCALE 3 TO 5; Start 01/05/17 at 15:00 Oxycodone/ Acetaminophen (Percocet 10-325 Mg) 1 tab Q6H PRN PO PAIN SCALE 6 TO 10 Last administered on 01/05/17 16:46; Start 01/05/17 at 15:00 Morphine Sulfate (Morphine Inj) 2 mg Q3H PRN IV PUSH Pain 3-5; if unable to take PO; Start 01/05/17 at 14:30 Morphine Sulfate (Morphine Inj) 4 mg Q3H PRN IV PUSH Pain 6-10;if unable to take PO; Start 01/05/17 at 15:00 Naloxone HCl (Narcan Inj) 0.4 mg UNSCH PRN IV PUSH SEE LABEL COMMENTS; Start 01/05/17 at 15:00 Senna/Docusate Sodium (Coby-Colace) 1 tab BID PO ; Start 01/05/17 at 21:00 Magnesium Hydroxide (Milk Of Magnesia Liq) 30 ml Q12H PRN PO Mild constipation ; Start 01/05/17 at 14:30 Sennosides (Senokot) 17.2 mg Q12H PRN PO Moderate constipation; Start at 15:00 Bisacodyl (Dulcolax Supp) 10 mg DAILY PRN RECTAL SEVERE CONSITIPATION; Start 01/05/17 at 14:30 Lactulose (Lactulose Liq) 30 ml DAILY PRN PO SEVERE CONSITIPATION; Start 01/05 at 14:30 Ondansetron HCl (Zofran Inj) 4 mg Q6H PRN IVP NAUSEA OR VOMITING; Start at 19:00 A/P Assessment and Plan 56-year-old female with past medical history significant for asthma presents with high fever, untreated urinary tract infection and positive blood cultures. 1. Sepsis Patient febrile to 105.1, tachycardic without leukocytosis. Lactic acid 1.7 4/4 blood cultures positive for gram-negative rods Follow blood cultures UA consistent with UTI, urine culture pending Vancomycin/Zosyn Chest x-ray without acute process, reviewed by me Repeat blood cultures pending Status post 3 L in the ED, continue IV fluids Infectious disease consulted, appreciate recommendations Patient was diagnosed with urinary tract infection a few days ago never went and got the medications KLEBSIELLA 2. UTI Treatment as above 3. Asthma Patient reports she has not needed her rescue inhaler in years Albuterol prn 4. Hypokalemia Supplement with by mouth potassium FEN Heart healthy diet NS at 125 cc/hour Electrolytes: Monitor and replete when necessary Heparin A.m. labs Increase activity Discharge Planning Increase activity Don Whelan DO Jan 06, 2017 10:33
[2017-01-06] MEDS ORDERED: RESP: ALBUTEROL 2.5 MG/IPRATROPIUM 0.5 MG NEB (PRN) NEB (10:45)
[2017-01-06] MEDS ORDERED: PHARMACY ORDERED LAB ONE (11:45)
[2017-01-06] MEDS: LACTOBACILLUS ACIDOPHILUS TAB PO SCH ×2 (12:07→16:42)
[2017-01-06 12:25] LABS: HEMOGLOBIN A1a 0.9 %; HEMOGLOBIN A1b 1.9 %; HEMOGLOBIN Ao 84.6 %; HEMOGLOBIN LA1C 2.3 %; HEMOGLOBIN P3 4.1 %
[2017-01-06] MEDS: BUDESONIDE-FORMOTEROL 160/4.5 MCG INHALER INH SCH ×2 (13:12→19:54)
--- NOTE | 2017-01-06 13:33 | HHI.IDPN ---
Subjective Subjective Remarks doing better T max 99.9 Grew Kleb pneumo 4/4 Antibiotics zosyn Allergies: Coded Allergies: shellfish derived (Unverified Allergy, Severe, TINGLING AND ITCHING IN MOUTH AND THROAT, 01/04/17) Objective . Vital Signs Date Time Temp Pulse Resp B/P (MAP) Pulse Ox O2 Delivery O2 Flow Rate FiO2 01/06/17 12:00 98.0 101 19 115/56 (75) 96 01/06/17 09:38 102 01/06/17 08:00 96.6 96 18 106/56 (73) 97 01/06/17 04:30 97.3 91 18 104/56 (72) 96 01/06/17 01:30 99.9 111 20 107/52 (70) 95 01/05/17 21:13 98.8 96 20 96/53 (67) 100 01/05/17 16:00 100.9 107 16 119/58 (78) 96 01/05/17 14:04 103.2 . Laboratory Tests Test 01/04/17 22:52 01/05/17 04:27 01/06/17 06:05 White Blood Count 8.9 TH/MM3 9.7 TH/MM3 9.9 TH/MM3 Red Blood Count 3.69 MIL/MM3 3.43 MIL/MM3 3.27 MIL/MM3 Hemoglobin 11.3 GM/DL 10.6 GM/DL 10.4 GM/DL Hematocrit 33.2 % 31.2 % 29.6 % Mean Corpuscular Volume 89.9 FL 91.2 FL 90.4 FL Mean Corpuscular Hemoglobin 30.7 PG 31.1 PG 31.8 PG Mean Corpuscular Hemoglobin Concent 34.2 % 34.1 % 35.2 % Red Cell Distribution Width 13.5 % 13.9 % 13.8 % Platelet Count 158 TH/MM3 140 TH/MM3 118 TH/MM3 Mean Platelet Volume 7.9 FL 8.4 FL 9.0 FL Neutrophils (%) (Auto) 90.9 % 82.8 % 81.3 % Lymphocytes (%) (Auto) 3.5 % 8.8 % 10.8 % Monocytes (%) (Auto) 3.3 % 7.8 % 6.5 % Eosinophils (%) (Auto) 0.2 % 0.2 % 0.9 % Basophils (%) (Auto) 2.1 % 0.4 % 0.5 % Neutrophils # (Auto) 8.1 TH/MM3 8.0 TH/MM3 8.0 TH/MM3 Lymphocytes # (Auto) 0.3 TH/MM3 0.9 TH/MM3 1.1 TH/MM3 Monocytes # (Auto) 0.3 TH/MM3 0.8 TH/MM3 0.6 TH/MM3 Eosinophils # (Auto) 0.0 TH/MM3 0.0 TH/MM3 0.1 TH/MM3 Basophils # (Auto) 0.2 TH/MM3 0.0 TH/MM3 0.0 TH/MM3 CBC Comment AUTO DIFF DIFF FINAL DIFF FINAL Differential Total Cells Counted 100 Neutrophils % (Manual) 85 % Band Neutrophils % 10 % Lymphocytes % 3 % Monocytes % 2 % Neutrophils # (Manual) 8.5 TH/MM3 Differential Comment FINAL DIFF MANUAL Atypical Lymphocytes % Toxic Vacuolation PRESENT Platelet Estimate NORMAL Platelet Morphology Comment NORMAL Red Cell Morphology Comment NORMAL Laboratory Tests Test 01/04/17 22:52 01/05/17 04:27 01/06/17 06:05 Blood Urea Nitrogen 10 MG/DL 7 MG/DL 8 MG/DL Creatinine 0.89 MG/DL 0.68 MG/DL 0.63 MG/DL Random Glucose 127 MG/DL 124 MG/DL 104 MG/DL Total Protein 6.3 GM/DL 5.6 GM/DL 5.7 GM/DL Albumin 2.7 GM/DL 2.2 GM/DL Calcium Level 8.1 MG/DL 7.4 MG/DL 8.3 MG/DL Magnesium Level 1.2 MG/DL 1.8 MG/DL Alkaline Phosphatase 95 U/L 114 U/L Aspartate Amino Transf (AST/SGOT) 31 U/L 19 U/L Alanine Aminotransferase (ALT/SGPT) 54 U/L 43 U/L Total Bilirubin 1.1 MG/DL 0.7 MG/DL Sodium Level 137 MEQ/L 144 MEQ/L 141 MEQ/L Potassium Level 3.4 MEQ/L 3.9 MEQ/L 3.5 MEQ/L Chloride Level 108 MEQ/L 114 MEQ/L 112 MEQ/L Carbon Dioxide Level 20.8 MEQ/L 20.8 MEQ/L 21.7 MEQ/L Anion Gap 8 MEQ/L 9 MEQ/L 7 MEQ/L Estimat Glomerular Filtration Rate 66 ML/MIN 90 ML/MIN 98 ML/MIN Lactic Acid Level 1.7 mmol/L Protein Corrected Calcium 8.2 MG/DL Phosphorus Level 1.6 MG/DL Hemoglobin A1c 5.5 % Free Thyroxine 1.07 NG/DL Thyroid Stimulating Hormone 3rd Gen 1.370 uIU/ML Microbiology Date/Time Source Procedure Growth Status 01/04/17 22:50 Urine Catheterized Urine Urine Culture - Final NO GROWTH IN 48 HOURS. Complete Physical Exam CONSTITUTIONAL/GENERAL: This is an adequately nourished patient, in no apparent distress. TUBES/LINES/DRAINS: SKIN: No jaundice, rashes, or lesions. Ecchymoses on upper extremities. No wounds seen anteriorly. Skin temperature appropriate. Not diaphoretic. CARDIOVASCULAR: Regular rate and rhythm without murmurs, gallops, or rubs. No JVD. Peripheral pulses symmetric. RESPIRATORY/CHEST: Symmetric, unlabored respirations. Clear to auscultation. Breath sounds equal bilaterally. No wheezes, rales, or rhonchi. GASTROINTESTINAL: Abdomen soft, + mild epigastral tenderness, nondistended. No hepato-splenomegaly, or palpable masses. No guarding. Bowel sounds present. GENITOURINARY: Without palpable bladder distension. No longer CVA tenderness on L MUSCULOSKELETAL: Extremities without clubbing, cyanosis, or edema. No joint tenderness or effusion noted. No calf tenderness. No mottling or clubbing. NEUROLOGICAL: Awake and alert. Motor and sensory grossly within normal limits. Follows commands. Clear speech. Moves all extremities. PSYCHIATRIC: No obvious anxiety/depression. no apparent hallucinations or other psychotic thought process. Assessment & Plan Remarks Klebsiella high brade bacteremia, source GI/, probably L pyelonephritis - UA and clin exam w pyelo, but urine clx are negative dc zosyn switch to CFTX, if remains afebrile will dc tomorrow with Levaquine PO chk stool for c.diff consider US to r/o kidney stones dw Dr Jonathan Munoz,Azucena Johnston MD Jan 06, 2017 13:33
[2017-01-06] MEDS: cefTRIAXone INJ 2,000 MG in SODIUM CHLORIDE 0.9% INJ 100 ML IV SCH (15:35)
[2017-01-06] MEDS: ACETAMINOPHEN 325 MG TAB PO PRN (16:42)
[2017-01-06 17:03] LABS: C. DIFF EPI 027 PRESUMPTIVE NEGATIVE (NEGATIVE)
[2017-01-06] MEDS: ZOLPIDEM TARTRATE 5 MG TAB PO PRN (19:59)
[2017-01-07] VITALS (8 sets, daily range): BP systolic 116–137; BP diastolic 57–78; PULSE 69–103; RESP 17–20; TEMP 96.9–99.9; O2SAT 94–98
[2017-01-07] MEDS: SODIUM CHLOR 0.9% 1000 ML INJ 1,000 ML IV SCH ×2 (01:43→10:43)
[2017-01-07 07:51] LABS: AUTOMATED NEUTROPHIL # 6.3 TH/MM3 (1.8-7.7); BASOPHIL # 0.1 TH/MM3 (0-0.2); BASOPHIL % 0.7 % (0.0-2.0); EOSINOPHIL # 0.1 TH/MM3 (0-0.4); EOSINOPHIL % 0.9 % (0.0-4.0); HEMATOCRIT 29.7 % (35.0-46.0); HEMO FLAGS DIFF FINAL; LYMPH % 15.4 % (9.0-44.0); LYMPHOCYTE # 1.3 TH/MM3 (1.0-4.8); MEAN CELL VOLUME 90.6 FL (80.0-100.0); MEAN CORPUSCULAR HEMOGLOBIN 31.7 PG (27.0-34.0); MEAN CORPUSCULAR HGB CONC 34.9 % (32.0-36.0); MONO % 6.9 % (0.0-8.0); NEUT % 76.1 % (16.0-70.0); PLATELET COUNT 166 TH/MM3 (150-450); RED BLOOD COUNT 3.28 MIL/MM3 (4.00-5.30); RED CELL DISTRIBUTION WIDTH 14.3 % (11.6-17.2); WHITE BLOOD COUNT 8.3 TH/MM3 (4.0-11.0)
[2017-01-07] MEDS: SODIUM CHLORIDE 0.9% FLUSH 10 ML FLUSH IV FLUSH SCH ×2 (08:26→19:43)
[2017-01-07] MEDS: BUDESONIDE-FORMOTEROL 160/4.5 MCG INHALER INH SCH ×2 (08:26→19:41)
[2017-01-07] MEDS: PANTOPRAZOLE SOD 40 MG DELAYED RELEASE TAB PO SCH ×2 (08:26→19:43)
[2017-01-07] MEDS: LACTOBACILLUS ACIDOPHILUS TAB PO SCH ×3 (08:26→17:00)
[2017-01-07] MEDS: DOCUSATE SODIUM 50 MG/SENNA 8.6 MG TAB PO SCH ×2 (08:26→19:41)
[2017-01-07 08:29] LABS: ALKALINE PHOSPHATASE 168 U/L (45-117); ALT (GPT) 41 U/L (10-53); ANION GAP 11 MEQ/L (5-15); AST (GOT) 17 U/L (15-37); BICARBONATE 21.9 MEQ/L (21.0-32.0); BLOOD UREA NITROGEN 5 MG/DL (7-18); CHLORIDE 109 MEQ/L (98-107); GLOMERULAR FILTRATION RATE 93 ML/MIN (>89); MAGNESIUM 1.9 MG/DL (1.5-2.5); SODIUM (NA) 142 MEQ/L (136-145); TOTAL BILIRUBIN ADULT 0.6 MG/DL (0.2-1.0)
[2017-01-07 08:33] LABS: POTASSIUM 2.9 MEQ/L (3.5-5.1)
[2017-01-07] MEDS ORDERED: POTASSIUM CHLORIDE 20 MEQ CONTROLLED RELEASE TAB PO ONE (09:45)
[2017-01-07] MEDS ORDERED: POTASSIUM CHLORIDE 10 MEQ CONTROLLED RELEASE TAB PO ONE (09:45)
[2017-01-07] MEDS ORDERED: POTASSIUM PHOSPHATE INJ 30 MMOL in SODIUM CHLOR 0.9% 250 ML INJ 250 ML IV ONE (09:45)
--- NOTE | 2017-01-07 11:43 | HHI.PR ---
Subjective Remarks 56-year-old female with a past medical history significant for asthma presents with fever/chills and body aches. The patient states her fevers have been getting steadily worse since Sunday. She was seen in the emergency department on 01/03/17 and diagnosed with a UTI. She was given a prescription for Macrobid however she was unable to fill the prescription. She reports instead she took an old antibiotic that she had at home, Cipro 1 dose. She denies any symptoms of dysuria. On arrival to the emergency department her temperature was 105.1. She was tachycardic to 131. 4/4 blood cultures drawn on 01/03/17 were positive for gram-negative rods. Urine showed rare bacteria, negative leukocyte esterase and negative nitrites. Urine from 01/03 had large leukocyte esterase with 28 WBCs. Patient also recently had a dental implant placed. 01-05 complaining of chills and body aches and fevers Please see previous history Continue on antibiotics with vancomycin and Zosyn at this time we will de- escalate as able Discussed with patient and RN 01-06 HAD SOME FEVERS LAST NIGHT, HAVING DIARRHEA ADD LACTINEX CONTINUE CURRENT TREATMENT KLEBSIELLA ON CULTURES DW RN AND PT ANTIBIOTICS PER ID THINKS HER ASTHMA IS FLARING UP 01-07 ELECTROLYTE ISSUES- WILL REPLACE POTASSIUM AND OTHER ELECTROLYTES HAD FEVER LAST NIGHT IF NO FEVERS HOPEFULLY DC TO HOME TOMORROW ON LEVAQUIN DW RN AND PT DW ID YESTERDAY AM LABS WILL GET US OF KIDNEYS FOR COMPLETENESS SOME BLOOD TINGED SPUTUM WHEN COUGHING Objective Vitals Vital Signs Date Time Temp Pulse Resp B/P (MAP) Pulse Ox O2 Delivery O2 Flow Rate FiO2 01/07/17 08:00 98.7 103 18 137/63 (87) 96 01/07/17 03:57 99.9 70 18 131/65 (87) 94 01/07/17 00:21 96.9 69 18 116/57 (76) 96 01/06/17 21:15 91 01/06/17 20:03 99.3 82 17 109/59 (76) 96 01/06/17 16:00 101.1 111 20 121/57 (78) 94 01/06/17 15:25 101.1 01/06/17 12:00 98.0 101 19 115/56 (75) 96 I/O 11/25/17 1101/06/17 01/07/17 01/07/17 01/07/17 07:00 15:00 23:00 07:00 15:00 23:00 Intake Total 580 ml 50 ml 1768 ml 1680 ml Output Total 1200 ml 1350 ml 1800 ml Balance -620 ml 50 ml 418 ml -120 ml Intake Oral 480 ml 695 ml 680 ml IV Total 100 ml 50 ml 1073 ml 1000 ml Output Urine Total 1200 ml 1350 ml 1800 ml # Bowel Movements 1 0 Result Diagram: 01/07/17 0642 01/07/17 0642 Other Results Laboratory Tests Test 01/04/17 22:50 01/04/17 22:52 01/05/17 04:27 01/06/17 06:05 Urine Color LIGHT-YELLOW Urine Turbidity CLEAR Urine pH 5.5 Urine Specific [place] 1.007 Urine Protein 30 mg/dL Urine Glucose (UA) NEG mg/dL Urine Ketones 10 mg/dL Urine Occult Blood MOD Urine Nitrite NEG Urine Bilirubin NEG Urine Urobilinogen LESS THAN 2.0 MG/DL Urine Leukocyte Esterase NEG Urine RBC 8 /hpf Urine WBC 4 /hpf Urine Squamous Epithelial Cells <1 /hpf Urine Transitional Epithelial Cells <1 /hpf Urine Amorphous Sediment OCC Urine Bacteria RARE /hpf Urine Mucus FEW /lpf Microscopic Urinalysis Comment CATH-CULTURE IND White Blood Count 8.9 TH/MM3 9.7 TH/MM3 9.9 TH/MM3 Red Blood Count 3.69 MIL/MM3 3.43 MIL/MM3 3.27 MIL/MM3 Hemoglobin 11.3 GM/DL 10.6 GM/DL 10.4 GM/DL Hematocrit 33.2 % 31.2 % 29.6 % Mean Corpuscular Volume 89.9 FL 91.2 FL 90.4 FL Mean Corpuscular Hemoglobin 30.7 PG 31.1 PG 31.8 PG Mean Corpuscular Hemoglobin Concent 34.2 % 34.1 % 35.2 % Red Cell Distribution Width 13.5 % 13.9 % 13.8 % Platelet Count 158 TH/MM3 140 TH/MM3 118 TH/MM3 Mean Platelet Volume 7.9 FL 8.4 FL 9.0 FL Neutrophils (%) (Auto) 90.9 % 82.8 % 81.3 % Lymphocytes (%) (Auto) 3.5 % 8.8 % 10.8 % Monocytes (%) (Auto) 3.3 % 7.8 % 6.5 % Eosinophils (%) (Auto) 0.2 % 0.2 % 0.9 % Basophils (%) (Auto) 2.1 % 0.4 % 0.5 % Neutrophils # (Auto) 8.1 TH/MM3 8.0 TH/MM3 8.0 TH/MM3 Lymphocytes # (Auto) 0.3 TH/MM3 0.9 TH/MM3 1.1 TH/MM3 Monocytes # (Auto) 0.3 TH/MM3 0.8 TH/MM3 0.6 TH/MM3 Eosinophils # (Auto) 0.0 TH/MM3 0.0 TH/MM3 0.1 TH/MM3 Basophils # (Auto) 0.2 TH/MM3 0.0 TH/MM3 0.0 TH/MM3 CBC Comment AUTO DIFF DIFF FINAL DIFF FINAL Differential Total Cells Counted 100 Neutrophils % (Manual) 85 % Band Neutrophils % 10 % Lymphocytes % 3 % Monocytes % 2 % Neutrophils # (Manual) 8.5 TH/MM3 Differential Comment FINAL DIFF MANUAL Atypical Lymphocytes % Toxic Vacuolation PRESENT Platelet Estimate NORMAL Platelet Morphology Comment NORMAL Red Cell Morphology Comment NORMAL Blood Urea Nitrogen 10 MG/DL 7 MG/DL 8 MG/DL Creatinine 0.89 MG/DL 0.68 MG/DL 0.63 MG/DL Random Glucose 127 MG/DL 124 MG/DL 104 MG/DL Total Protein 6.3 GM/DL 5.6 GM/DL 5.7 GM/DL Albumin 2.7 GM/DL 2.2 GM/DL Calcium Level 8.1 MG/DL 7.4 MG/DL 8.3 MG/DL Magnesium Level 1.2 MG/DL 1.8 MG/DL Alkaline Phosphatase 95 U/L 114 U/L Aspartate Amino Transf (AST/SGOT) 31 U/L 19 U/L Alanine Aminotransferase (ALT/SGPT) 54 U/L 43 U/L Total Bilirubin 1.1 MG/DL 0.7 MG/DL Sodium Level 137 MEQ/L 144 MEQ/L 141 MEQ/L Potassium Level 3.4 MEQ/L 3.9 MEQ/L 3.5 MEQ/L Chloride Level 108 MEQ/L 114 MEQ/L 112 MEQ/L Carbon Dioxide Level 20.8 MEQ/L 20.8 MEQ/L 21.7 MEQ/L Anion Gap 8 MEQ/L 9 MEQ/L 7 MEQ/L Estimat Glomerular Filtration Rate 66 ML/MIN 90 ML/MIN 98 ML/MIN Lactic Acid Level 1.7 mmol/L Protein Corrected Calcium 8.2 MG/DL Phosphorus Level 1.6 MG/DL Hemoglobin A1c 5.5 % Free Thyroxine 1.07 NG/DL Thyroid Stimulating Hormone 3rd Gen 1.370 uIU/ML Test 01/06/17 15:00 01/07/17 06:42 Stool C. difficile Toxin (PCR) NEGATIVE Stl C. difficile Toxin Epiderm 027 PRESUMPTIVE NEGATIVE White Blood Count 8.3 TH/MM3 Red Blood Count 3.28 MIL/MM3 Hemoglobin 10.4 GM/DL Hematocrit 29.7 % Mean Corpuscular Volume 90.6 FL Mean Corpuscular Hemoglobin 31.7 PG Mean Corpuscular Hemoglobin Concent 34.9 % Red Cell Distribution Width 14.3 % Platelet Count 166 TH/MM3 Mean Platelet Volume 9.2 FL Neutrophils (%) (Auto) 76.1 % Lymphocytes (%) (Auto) 15.4 % Monocytes (%) (Auto) 6.9 % Eosinophils (%) (Auto) 0.9 % Basophils (%) (Auto) 0.7 % Neutrophils # (Auto) 6.3 TH/MM3 Lymphocytes # (Auto) 1.3 TH/MM3 Monocytes # (Auto) 0.6 TH/MM3 Eosinophils # (Auto) 0.1 TH/MM3 Basophils # (Auto) 0.1 TH/MM3 CBC Comment DIFF FINAL Differential Comment Blood Urea Nitrogen 5 MG/DL Creatinine 0.66 MG/DL Random Glucose 121 MG/DL Total Protein 6.2 GM/DL Albumin 2.3 GM/DL Calcium Level 8.1 MG/DL Phosphorus Level 1.9 MG/DL Magnesium Level 1.9 MG/DL Alkaline Phosphatase 168 U/L Aspartate Amino Transf (AST/SGOT) 17 U/L Alanine Aminotransferase (ALT/SGPT) 41 U/L Total Bilirubin 0.6 MG/DL Sodium Level 142 MEQ/L Potassium Level 2.9 MEQ/L Chloride Level 109 MEQ/L Carbon Dioxide Level 21.9 MEQ/L Anion Gap 11 MEQ/L Estimat Glomerular Filtration Rate 93 ML/MIN Objective Remarks GENERAL: female lying in bed awake alert oriented talkative and cooperative SKIN: No rashes, ecchymoses or lesions. Cool and dry. HEAD: Atraumatic. Normocephalic. No temporal or scalp tenderness. EYES: Pupils equal round and reactive. Extraocular motions intact. No scleral icterus. No injection or drainage. ENT: Nose without bleeding, purulent drainage or septal hematoma. Throat without erythema, tonsillar hypertrophy or exudate. Uvula midline. Airway patent. Tongue is midline NECK: Trachea midline. No JVD or lymphadenopathy. Supple, nontender, no meningeal signs. CARDIOVASCULAR: Regular rate and rhythm without murmurs, gallops, or rubs. RESPIRATORY: Clear to auscultation. Breath sounds equal bilaterally. No wheezes , rales, or rhonchi. GASTROINTESTINAL: Abdomen soft, nondistended. Tender to palpation in the suprapubic region. No hepato-splenomegaly, or palpable masses. No guarding. NO CVA TENDERNESS MUSCULOSKELETAL: Extremities without clubbing, cyanosis, or edema. No joint tenderness, effusion, or edema noted. No calf tenderness. Negative Homans sign bilaterally. NEUROLOGICAL: Awake and alert. Cranial nerves II through XII intact. Motor and sensory grossly within normal limits. Normal speech. Patient is awake alert and oriented talkative and cooperative Insight and judgment is good Mood and behaviors appropriate Procedures NONE Medications and IVs Current Medications Ibuprofen (Motrin) 800 mg ONCE ONCE PO ; Start 01/04/17 at 22:30; Stop at 22:31; Status DC Sodium Chloride 1,000 ml @ 1,000 mls/hr Q1H ONCE IV Last administered on 01/04 22:55; Start 01/04/17 at 22:27; Stop 01/04/17 at 23:26; Status DC Sodium Chloride 1,000 ml @ 1,000 mls/hr Q1H ONCE IV Last administered on 01/04 22:56; Start 01/04/17 at 22:27; Stop 01/04/17 at 23:26; Status DC Sodium Chloride 100 ml @ 1,000 mls/hr Q6M ONCE IV Last administered on 22:55; Start 01/04/17 at 22:27; Stop 01/04/17 at 22:32; Status DC Piperacillin Sod/ Tazobactam Sod 100 ml @ 200 mls/hr ONCE STAT IV Last administered on 01/04/17 22:56; Start 01/04/17 at 22:38; Stop 01/04/17 at 23 :07; Status DC Vancomycin HCl 1000 mg/Sodium Chloride 250 ml @ 250 mls/hr ONCE STAT IV Last administered on 01/05/17 00:20; Start 01/04/17 at 22:38; Stop 01/04/17 at 23 :37; Status DC Pharmacy Profile Note 0 ml @ 0 mls/hr UNSCH OTHER ; Start 01/05/17 at 01:15; Stop 01/05/17 at 11:38; Status DC Vancomycin HCl 1000 mg/Sodium Chloride 250 ml @ 250 mls/hr Q12H IV ; Start at 11:00; Stop 01/05/17 at 11:00; Status DC Piperacillin Sod/ Tazobactam Sod 50 ml @ 100 mls/hr Q6H IV Last administered on 01/06/17 09:38; Start 01/05/17 at 05:00; Stop 01/06/17 at 13:35; Status DC Sodium Chloride 1,000 ml @ 125 mls/hr Q8H IV Last administered on 01/07/17 10:43; Start 01/05/17 at 01:01 Sodium Chloride (NS Flush) 2 ml UNSCH PRN IV FLUSH FLUSH AFTER USING IV ACCESS ; Start 01/05/17 at 01:15; Status Cancel Sodium Chloride (NS Flush) 2 ml BID IV FLUSH ; Start 01/05/17 at 09:00; Stop 01/05/17 at 14:51; Status DC Acetaminophen (Tylenol) 650 mg Q4H PRN PO TEMP > 100.4 Last administered on 16:42; Start 01/05/17 at 01:15 Ondansetron HCl (Zofran Inj) 4 mg Q6H PRN IVP NAUSEA OR VOMITING Last administered on 01/05/17 13:22; Start 01/05/17 at 01:15; Stop 01/05/17 at 14 :49; Status DC Naloxone HCl (Narcan Inj) 0.4 mg UNSCH PRN IV PUSH SEE LABEL COMMENTS; Start 01/05/17 at 01:15; Status Cancel Senna/Docusate Sodium (Coby-Colace) 1 tab BID PO ; Start 01/05/17 at 09:00; Stop 01/05/17 at 14:51; Status DC Magnesium Hydroxide (Milk Of Magnesia Liq) 30 ml Q12H PRN PO Mild constipation ; Start 01/05/17 at 01:15; Status Cancel Sennosides (Senokot) 17.2 mg Q12H PRN PO Moderate constipation; Start at 01:15; Status Cancel Bisacodyl (Dulcolax Supp) 10 mg DAILY PRN RECTAL SEVERE CONSITIPATION; Start 01/05/17 at 01:15; Status Cancel Lactulose (Lactulose Liq) 30 ml DAILY PRN PO SEVERE CONSITIPATION; Start 01/05 at 01:15; Status Cancel Potassium Chloride (KCl) 40 meq ONCE ONCE PO Last administered on 01/05/17 01:41; Start 01/05/17 at 01:15; Stop 01/05/17 at 01:16; Status DC Albuterol Sulfate (Albuterol Concentrated Neb) 2.5 mg Q4HR NEB PRN NEB SOB/ Wheezing; Start 01/05/17 at 03:00 Influenza Virus Vaccine (Flu (Quadrivalent) Vaccine Inj) 0.5 ml ONCE ONCE IM ; Start 01/06/17 at 09:00; Stop 01/06/17 at 09:01; Status DC Vancomycin HCl 1000 mg/Sodium Chloride 250 ml @ 250 mls/hr Q12H IV Last administered on 01/05/17 11:11; Start 01/05/17 at 12:00; Stop 01/05/17 at 12 :00; Status DC Miscellaneous Information SPECIFIC LAB TO BE YAIR... ONCE ONCE .XX ; Start at 11:45; Stop 01/06/17 at 11:46; Status Cancel Ibuprofen (Motrin) 600 mg Q6H PRN PO fever/muscle aches Last administered on 21:21; Start 01/05/17 at 14:30 Pantoprazole Sodium (Protonix) 40 mg Q12HR PO Last administered on 01/07/17 08:26; Start 01/05/17 at 15:00 Sodium Chloride (NS Flush) 2 ml UNSCH PRN IV FLUSH FLUSH AFTER USING IV ACCESS ; Start 01/05/17 at 15:00 Sodium Chloride (NS Flush) 2 ml BID IV FLUSH ; Start 01/05/17 at 21:00 Ondansetron HCl (Zofran Inj) 4 mg Q6H PRN IVP NAUSEA OR VOMITING; Start at 15:00; Status Cancel Prochlorperazine (Compazine Supp) 25 mg Q12H PRN RECTAL NAUSEA OR VOMITING; Start 01/05/17 at 15:00 Zolpidem Tartrate (Ambien) 5 mg HS PRN PO INSOMNIA Last administered on 19:59; Start 01/05/17 at 21:00 Oxycodone/ Acetaminophen (Percocet 5-325 Mg) 1 tab Q6H PRN PO PAIN SCALE 3 TO 5; Start 01/05/17 at 15:00 Oxycodone/ Acetaminophen (Percocet 10-325 Mg) 1 tab Q6H PRN PO PAIN SCALE 6 TO 10 Last administered on 01/05/17 16:46; Start 01/05/17 at 15:00 Morphine Sulfate (Morphine Inj) 2 mg Q3H PRN IV PUSH Pain 3-5; if unable to take PO; Start 01/05/17 at 14:30 Morphine Sulfate (Morphine Inj) 4 mg Q3H PRN IV PUSH Pain 6-10;if unable to take PO; Start 01/05/17 at 15:00 Naloxone HCl (Narcan Inj) 0.4 mg UNSCH PRN IV PUSH SEE LABEL COMMENTS; Start 01/05/17 at 15:00 Senna/Docusate Sodium (Coby-Colace) 1 tab BID PO ; Start 01/05/17 at 21:00 Magnesium Hydroxide (Milk Of Magnesia Liq) 30 ml Q12H PRN PO Mild constipation ; Start 01/05/17 at 14:30 Sennosides (Senokot) 17.2 mg Q12H PRN PO Moderate constipation; Start at 15:00 Bisacodyl (Dulcolax Supp) 10 mg DAILY PRN RECTAL SEVERE CONSITIPATION; Start 01/05/17 at 14:30 Lactulose (Lactulose Liq) 30 ml DAILY PRN PO SEVERE CONSITIPATION; Start 01/05 at 14:30 Ondansetron HCl (Zofran Inj) 4 mg Q6H PRN IVP NAUSEA OR VOMITING; Start at 19:00 Lactobacillus Acidophilus (Lactinex) 1 tab TID PO Last administered on 08:26; Start 01/06/17 at 13:00 Budesonide/ Formoterol Fumarate (Symbicort 160-4.5 Inh) 1 puff Q12HR INH ; Start 01/06/17 at 11:00 Albuterol/ Ipratropium (Duoneb Neb) 1 ampule Q4HR NEB PRN NEB SOB/COUGH; Start 01/06/17 at 10:45 Ceftriaxone Sodium 2000 mg/ Sodium Chloride 100 ml @ 200 mls/hr Q24H IV Last administered on 01/06/17 15:35; Start 01/06/17 at 14:00 Potassium Phosphate 30 mmol/ Sodium Chloride 260 ml @ 43.333 mls/ hr ONCE ONCE IV Last administered on 01/07/17 10:43; Start 01/07/17 at 09:45; Stop 01/07/17 at 15:44 Potassium Chloride (KCl) 40 meq ONCE ONCE PO Last administered on 01/07/17 10:36; Start 01/07/17 at 09:45; Stop 01/07/17 at 09:46; Status DC Potassium Chloride (KCl) 40 meq ONCE ONCE PO Last administered on 01/07/17 10:38; Start 01/07/17 at 09:45; Stop 01/07/17 at 09:46; Status DC A/P Assessment and Plan 56-year-old female with past medical history significant for asthma presents with high fever, untreated urinary tract infection and positive blood cultures. 1. Sepsis Patient febrile to 105.1, tachycardic without leukocytosis. Lactic acid 1.7 4/4 blood cultures positive for gram-negative rods Follow blood cultures UA consistent with UTI, urine culture pending Vancomycin/Zosyn Chest x-ray without acute process, reviewed by me Repeat blood cultures pending Status post 3 L in the ED, continue IV fluids Infectious disease consulted, appreciate recommendations Patient was diagnosed with urinary tract infection a few days ago never went and got the medications KLEBSIELLA PNEUMONIAE 2. UTI Treatment as above KLEBSIELLA PNEUMONIAE SWITCH TO PO LEVAQUIN AT [place] TOMORROW IF NO FEVERS AND STABLE 3. Asthma Patient reports she has not needed her rescue inhaler in years Albuterol prn NO WHEEZING 4. Hypokalemia Supplement with by mouth potassium HYPOPHOSPHATEMIA- REPLACE IV FEN Heart healthy diet Electrolytes: Monitor and replete when necessary Heparin A.m. labs Increase activity Discharge Planning Increase activity Don Whelan DO Jan 07, 2017 11:43
[2017-01-07] MEDS: cefTRIAXone INJ 2,000 MG in SODIUM CHLORIDE 0.9% INJ 100 ML IV SCH (12:48)
--- NOTE | 2017-01-07 18:09 | RADRPT ---
EXAM DATE/TIME: 01/07/2017 16:02 [place] COMPARISON: No previous studies available for comparison. EXTERNAL COMPARISON : [facility], CT Abdomen and pelvis, August 28, 2011 INDICATIONS : Flank pain. MEDICAL HISTORY : Urinary tract infection. SURGICAL HISTORY : Tonsillectomy. ENCOUNTER: Initial ACUITY: 1 day PAIN SCORE: 0/10 LOCATION: Bilateral flank MEASUREMENTS: RIGHT KIDNEY: 11.8 x 4.6 x 4.0 cm LEFT KIDNEY: 11.3 x 4.9 x 4.7 cm FINDINGS: RIGHT KIDNEY: Renal cortex is normal in thickness and echotexture. No hydronephrosis, stone, or mass. LEFT KIDNEY: Renal cortex is normal in thickness and echotexture. No hydronephrosis, stone, or mass. BLADDER: Post void, not well visualized CONCLUSION: 1. Kidneys unremarkable sonographically. Incidental right pleural effusion and thickened gallbladder wall with gallstones. Hiren Hernandez MD on January 07, 2017 at 18:05 Board Certified Radiologist. This report was verified electronically.
[2017-01-07] MEDS: ZOLPIDEM TARTRATE 5 MG TAB PO PRN (19:43)
[2017-01-08 00:18] VITALS: BP 129/60; PULSE 68; RESP 18; TEMP 98.2; O2SAT 96
[2017-01-08] MEDS: IBUPROFEN 600 MG TAB PO PRN (04:17)
[2017-01-08 04:45] VITALS: BP 136/72; PULSE 88; RESP 20; TEMP 98.3; O2SAT 96
[2017-01-08 08:00] VITALS: BP 120/62; PULSE 75; RESP 18; TEMP 96.3; O2SAT 98
[2017-01-08] MEDS: PANTOPRAZOLE SOD 40 MG DELAYED RELEASE TAB PO SCH (09:32)
[2017-01-08] MEDS: DOCUSATE SODIUM 50 MG/SENNA 8.6 MG TAB PO SCH (09:32)
[2017-01-08] MEDS: SODIUM CHLORIDE 0.9% FLUSH 10 ML FLUSH IV FLUSH SCH (09:32)
[2017-01-08] MEDS: BUDESONIDE-FORMOTEROL 160/4.5 MCG INHALER INH SCH (09:32)
[2017-01-08] MEDS: LACTOBACILLUS ACIDOPHILUS TAB PO SCH (09:32)
[2017-01-08 11:56] VITALS: BP 123/58; PULSE 71; RESP 19; TEMP 97; O2SAT 98
[2017-01-08 12:11] LABS: HEMATOCRIT 31.3 % (35.0-46.0); MEAN CELL VOLUME 90.5 FL (80.0-100.0); MEAN CORPUSCULAR HEMOGLOBIN 30.7 PG (27.0-34.0); MEAN CORPUSCULAR HGB CONC 33.9 % (32.0-36.0); PLATELET COUNT 244 TH/MM3 (150-450); RED BLOOD COUNT 3.46 MIL/MM3 (4.00-5.30); RED CELL DISTRIBUTION WIDTH 14.6 % (11.6-17.2); REVIEW FLAG FINAL; WHITE BLOOD COUNT 5.9 TH/MM3 (4.0-11.0)
[2017-01-08 12:53] LABS: BICARBONATE 25.3 MEQ/L (21.0-32.0)
[2017-01-08] MEDS ORDERED: LEVA500T33 PO (14:48)
[2017-01-08] MEDS ORDERED: LACT PO (14:48)
--- NOTE | 2017-01-08 15:16 | HHI.DS ---
Discharge Summary Admission Date Jan 05, 2017 at 01:06 Discharge Date: Jan 08, 2017 Admitting Diagnosis sepsis; uti (1) Sepsis ICD Code: A41.9 - Sepsis, unspecified organism (2) Urinary tract infection ICD Code: N39.0 - Urinary tract infection, site not specified Procedures NONE Brief History - From Admission 56-year-old female with a past medical history significant for asthma presents with fever/chills and body aches. The patient states her fevers have been getting steadily worse since Sunday. She was seen in the emergency department on 01/03/17 and diagnosed with a UTI. She was given a prescription for Macrobid however she was unable to fill the prescription. She reports instead she took an old antibiotic that she had at home, Cipro 1 dose. She denies any symptoms of dysuria. On arrival to the emergency department her temperature was 105.1. She was tachycardic to 131. 4/4 blood cultures drawn on 01/03/17 were positive for gram-negative rods. Urine showed rare bacteria, negative leukocyte esterase and negative nitrites. Urine from 01/03 had large leukocyte esterase with 28 WBCs. Patient also recently had a dental implant placed. CBC/BMP: 01/08/17 1158 01/08/17 1158 Significant Findings Laboratory Tests Test 01/06/17 06:05 01/06/17 15:00 01/07/17 06:42 01/08/17 11:58 Red Blood Count 3.27 MIL/MM3 (4.00-5.30) 3.28 MIL/MM3 (4.00-5.30) 3.46 MIL/MM3 (4.00-5.30) Hemoglobin 10.4 GM/DL (11.6-15.3) 10.4 GM/DL (11.6-15.3) 10.6 GM/DL (11.6-15.3) Hematocrit 29.6 % (35.0-46.0) 29.7 % (35.0-46.0) 31.3 % (35.0-46.0) Platelet Count 118 TH/MM3 (150-450) Neutrophils (%) (Auto) 81.3 % (16.0-70.0) 76.1 % (16.0-70.0) Neutrophils # (Auto) 8.0 TH/MM3 (1.8-7.7) Total Protein 5.7 GM/DL (6.4-8.2) 6.2 GM/DL (6.4-8.2) Albumin 2.2 GM/DL (3.4-5.0) 2.3 GM/DL (3.4-5.0) Calcium Level 8.3 MG/DL (8.5-10.1) 8.1 MG/DL (8.5-10.1) Phosphorus Level 1.6 MG/DL (2.5-4.9) 1.9 MG/DL (2.5-4.9) Chloride Level 112 MEQ/L (98-107) 109 MEQ/L (98-107) 109 MEQ/L (98-107) Blood Urea Nitrogen 5 MG/DL (7-18) 5 MG/DL (7-18) Random Glucose 121 MG/DL (74-106) Alkaline Phosphatase 168 U/L (45-117) Potassium Level 2.9 MEQ/L (3.5-5.1) PE at Discharge GENERAL: female lying in bed awake alert oriented talkative and cooperative SKIN: No rashes, ecchymoses or lesions. Cool and dry. HEAD: Atraumatic. Normocephalic. No temporal or scalp tenderness. EYES: Pupils equal round and reactive. Extraocular motions intact. No scleral icterus. No injection or drainage. ENT: Nose without bleeding, purulent drainage or septal hematoma. Throat without erythema, tonsillar hypertrophy or exudate. Uvula midline. Airway patent. Tongue is midline NECK: Trachea midline. No JVD or lymphadenopathy. Supple, nontender, no meningeal signs. CARDIOVASCULAR: Regular rate and rhythm without murmurs, gallops, or rubs. RESPIRATORY: Clear to auscultation. Breath sounds equal bilaterally. No wheezes , rales, or rhonchi. GASTROINTESTINAL: Abdomen soft, nondistended. Tender to palpation in the suprapubic region. No hepato-splenomegaly, or palpable masses. No guarding. NO CVA TENDERNESS MUSCULOSKELETAL: Extremities without clubbing, cyanosis, or edema. No joint tenderness, effusion, or edema noted. No calf tenderness. Negative Homans sign bilaterally. NEUROLOGICAL: Awake and alert. Cranial nerves II through XII intact. Motor and sensory grossly within normal limits. Normal speech. Patient is awake alert and oriented talkative and cooperative Insight and judgment is good Mood and behaviors appropriate Hospital Course Mrs. Shepherd is a 56 -year-old female. She was admitted secondary to sepsis. Sepsis was related to UTI. She has not had a previous urinary tract infection in her life, to her knowledge. She did not have urinary tract infection symptoms. During her stay here, she has responded well to Rocephin. Levaquin is recommended as a treatment at discharge. She was monitored one extra day due to hypokalemia yesterday. Today her potassium has corrected and she is medically stable for discharge to home on 7 more days of Levaquin with probiotics. Pt Condition on Discharge: Stable Discharge Disposition: Discharge Home Discharge Time: <= 30 minutes Discharge Instructions DIET: Follow Instructions for: As Tolerated, No Restrictions Activities you can perform: Regular-No Restrictions Follow up Referrals: PCP Follow-up - 2 Weeks PCP Follow-up New Medications: Levofloxacin (Levaquin) 500 Mg Tablet 500 MG PO DAILY for Infection, #7 TAB 0 Refills Lactobacillus Acidophilus (Acidophilus/l-Sporogenes) 35 Million Cell-25 Million Cell Tab 1 TAB PO TID for Probiotic, #30 TAB Continued Medications: Hydrocodone-Acetaminophen ([place]) 5-325 mg Tab 1 TAB PO Q6H PRN for PAIN, #28 TAB 0 Refills Discontinued Medications: Nitrofurantoin Monohydrate Macrocrystals (Macrobid) 100 Mg Cap 100 MG PO BID for Infection for 7 Days, #14 CAP 0 Refills Krish Morales MD Jan 08, 2017 15:16
== END 2017-01-08 16:38 | disposition home or self-care (01) | DRG 872 ==
LOC: NEPC 21:55 → NEDA 01-05 01:06 → N07A 01-05 02:45
PROVIDERS: ADMIT Hospitalist; ATTEND Hospitalist
DX: A41.59 Other Gram-negative sepsis (principal); E83.39 Other disorders of phosphorus metabolism; N12 Tubulo-interstitial nephritis, not specified as acute or chronic; E87.6 Hypokalemia; J45.909 Unspecified asthma, uncomplicated; R00.0 Tachycardia, unspecified; R19.7 Diarrhea, unspecified
CPT/HCPCS: 76775; 80048; 80053; 81001; 83036; 83605; 83735; 84100; 84155; 84439; 84443; 85007; 85025; 85027; 87040; 87086; 87493; 93005; 94150; 96365; 96367; J0696; J2405; J2543; J3370; J7030; J7050